=== PATIENT | female | born 1945 | race Caucasian/White ===

== ENCOUNTER → 2016-09-30 | Outpatient (CLI) | payer OTHER ==
[~2016-09-30] MED LIST: ADVIN25050 INH; ALBU1AER9 INH; BNC20 PO
--- NOTE | 2016-09-30 15:42 | MAMMOGRAPHY REPORT ---
BILATERAL DIGITAL SCREENING MAMMOGRAM WITH CAD: 09/30/2016 CLINICAL HISTORY: Routine screening. TECHNIQUE: Bilateral CC and MLO views were obtained. Current study was also evaluated with a Computer Aided Detection (CAD) system. COMPARISON: Comparison is made to exam dated: 08/25/2008. BREAST COMPOSITION: The tissue of both breasts is almost entirely fatty. FINDINGS: A stable subcentimeter reniform mass in the right upper outer quadrant most likely represen ts an intramammary lymph node. No new suspicious mass, architectural distortion or cluster of microc alcifications is seen. IMPRESSION: ACR BI-RADS CATEGORY 1: NEGATIVE There is no mammographic evidence of malignancy. A 1 year screening mammogram is recommended. The pa tient will receive written notification of the results. Approximately 10% of breast cancers are not detected with mammography. A negative mammographic report should not delay biopsy if a clinically suggestive mass is present. Lexii Burrell M.D. ay/:09/30/2016 14:00:20 Teacher'S Aide: Amy Coughlin RT(R)(M), [facility] letter sent: Normal 1/2 BI-RADS Code: ACR BI-RADS Category 1: Negative
== END | disposition home or self-care (01) ==
LOC: C.MAMM 13:27
PROVIDERS: ATTEND Family Medicine
DX: Z12.31 Encounter for screening mammogram for malignant neoplasm of breast (principal)

== ENCOUNTER → 2017-02-25 | Outpatient (CLI) | payer OTHER | END | disposition home or self-care (01) | LOC: C.MAMM 08:56 | PROVIDERS: ATTEND Family Medicine | DX: M85.88 Other specified disorders of bone density and structure, other site (principal); M85.851 Other specified disorders of bone density and structure, right thigh; M85.852 Other specified disorders of bone density and structure, left thigh; M81.0 Age-related osteoporosis without current pathological fracture ==

== ENCOUNTER → 2017-04-16 | Outpatient (CLI) | payer OTHER ==
--- NOTE | 2017-04-16 16:37 | DIAGNOSTIC IMAGING REPORT ---
CHEST 2 VIEWS ROUTINE CLINICAL HISTORY: 72 years-old Female presenting with R05. TECHNIQUE: PA and lateral views of the chest were obtained. COMPARISON: 02/20/2015. FINDINGS: Median sternotomy wires with breakage of the inferior most wire, unchanged. Atherosclerosis of aortic arch. Cardiac silhouette top normal in size, unchanged. Pulmonary vascular prominence. Bandlike opacities at the lung bases as on prior exam. No new focal opacity. No pleural effusion or pneumothorax. Degenerative changes of the thoracic spine. Upper abdomen normal. IMPRESSION: 1. Findings could suggest mild volume overload. No other acute cardiopulmonary disease. 2. Chronic bibasilar scarring. Electronically signed by: [place] Arita M.D. 04/16/2017 4:36 PM Dictated Date/Time: 04/16/2017 4:34 PM
== END | disposition home or self-care (01) ==
LOC: C.RAD1850 16:19
PROVIDERS: ATTEND Family Medicine
DX: R05 Cough (principal); R50.9 Fever, unspecified

== ENCOUNTER → 2017-10-15 | Outpatient (CLI) | payer OTHER ==
[~2017-10-15] MED LIST changes: +OPTIRAY 320 IV PRN
--- NOTE | 2017-10-15 10:17 | DIAGNOSTIC IMAGING REPORT ---
CT SCAN OF THE CHEST WITH IV CONTRAST CLINICAL HISTORY: Asthma. Dyspnea. COMPARISON STUDY: Chest CT dated 02/11/2017. Chest x-ray dated 04/16/2017. TECHNIQUE: Following the IV administration of 92 cc of Optiray 320, CT scan of the thorax was performed from the thoracic inlet to the upper abdomen. Images are reviewed in the axial, sagittal, and coronal planes. IV contrast was administered without complication. A dose lowering technique was utilized adhering to the principles of ALARA. CT DOSE: 342.37 mGy.cm FINDINGS: Thyroid: Imaged portions of the thyroid gland are normal in size and attenuation. Thoracic aorta: There is mild atherosclerotic calcification of the thoracic aorta, which is normal in caliber and demonstrates bovine variant arch anatomy. No dissection is seen. Pulmonary vasculature: The main pulmonary arteries are dilated suggesting pulmonary artery hypertension. There are no filling defects identified in the central pulmonary vessels to indicate pulmonary embolus. Note that this examination was not protocoled for evaluation of the pulmonary arteries. Heart: The patient is status post midline sternotomy. There is mild enlargement the right cardiac chambers. No pericardial effusion is seen. The coronary arteries are densely calcified.. Lungs and pleural spaces: Evaluation of the lung parenchyma is modestly degraded by motion artifact. No airspace consolidation or pleural effusion is identified. There is chronic elevation of the left hemidiaphragm. Foci of bibasilar scarring/atelectasis are observed. There is a 7 mm right lower lobe pulmonary nodule seen on image #182. The trachea and central airways are clear. Mediastinum: There is no mediastinal lymphadenopathy. Kay: Clear. Axillae: There is no axillary lymphadenopathy. Upper abdomen: There is evidence of hepatic steatosis. A subcentimeter hypodensity in the left hepatic lobe is seen on image #259. This likely represents a cyst but is too small for definitive characterization. Skeletal structures: The skeletal structures are osteopenic. Degenerative change is noted in the thoracic spine. No lytic or blastic bony lesions are seen. IMPRESSION: 1. There is no airspace consolidation or pleural effusion. 2. There is a 7 mm right lower lobe pulmonary nodule. This is pathologically indeterminant, but new from 02/11/2007. This should be followed as per the Fleischner criteria. 3. Hepatic steatosis. 4. Additional findings as above. Please refer to below summary of Fleischner criteria recommendations for follow-up of incidental CT nodules (H MacMahon, Guidelines for management of small pulmonary nodules detected on CT scans: A statement from the Fleischner Society, Radiology 237: [phone].) SOLID NODULES Solitary nodule size: <6 mm * low risk patients: no follow-up needed * high risk patients: optional CT at 12 months Solitary nodule size: 6-8 mm * low risk patients: follow-up at 6-12 months, then consider further follow-up at 18-24 months * high risk patients: initial follow-up CT at 6-12 months and then at 18-24 months if no change Solitary nodule size: >8 mm * either low or high risk patients - consider follow-up CT at 3 months, and/or CT-PET, and/or biopsy Multiple nodules size: <6 mm * low risk patients: no routine follow-up * high risk patients: optional CT at 12 months Multiple nodules size: 6-8 mm * low risk patients: follow-up at 3-6 months, then consider further follow-up at 18-24 months * high risk patients: follow-up at 3-6 months, then at 18-24 months if no change Multiple nodules size: >8 mm * low risk patients: follow-up at 3-6 months, then consider further follow-up at 18-24 months * high risk patients: follow-up at 3-6 months, then at 18-24 months if no change Note: newly detected indeterminate nodule in persons 35 years of age or older. * low risk patients: minimal or absent history of smoking and/or other known risk factors * high risk patients: history of smoking or of other known risk factors (e.g. first degree relative with lung cancer, or exposure to asbestos, radon, uranium) * if a nodule up to 8 mm is partly solid or is ground glass further follow-up is required after 24 months to exclude possible slow growing adenocarcinoma (VENUS) SUBSOLID NODULES Solitary pure ground-glass nodule * nodule size <6 mm - no CT follow-up required * nodule size >=6 mm - follow-up CT at 6-12 months, then every 2 years until 5 years Solitary part-solid nodule * nodule size <6 mm - no CT follow-up required * nodule size >=6 mm - follow-up CT at 3-6 months. If unchanged, and solid component remains <6 mm, then annual follow-up for 5 years Multiple subsolid nodules * nodule size <6 mm - follow-up CT at 3-6 months, consider further follow-up at 2 and 4 years if stable * nodule size >=6 mm - follow-up CT at 3-6 months, subsequent management based on the most suspicious nodule(s) Electronically signed by: Pa Brothers M.D. 10/15/2017 10:16 AM Dictated Date/Time: 10/15/2017 10:08 AM
== END | disposition home or self-care (01) ==
LOC: C.CTS 09:28
PROVIDERS: ATTEND Internal Medicine Pulmonary Disease
DX: R91.1 Solitary pulmonary nodule (principal); K76.0 Fatty (change of) liver, not elsewhere classified; J45.909 Unspecified asthma, uncomplicated

== ENCOUNTER 2019-09-03 09:13 | Observation (INO) ==
[2019-09-03] MEDS ORDERED: ASPIRIN CHEW 324 MG PO STA (09:59)
[2019-09-03 11:25] LABS: Basophils # (auto) 0.05 K/uL (0-0.2); Basophils % (auto) 0.7 %; Eosinophils # (auto) 0.34 K/uL (0-0.5); Eosinophils % (auto) 4.7 %; Hematocrit (blood only) 43.2 % (37-47); Hemoglobin 14.8 g/dL (12.0-16.0); Immature Granulocytes # (auto) 0.01 K/uL (0.00-0.02); Immature Granulocytes % (auto) 0.1 %; Lymphocytes # (auto) 2.58 K/uL (1.2-3.4); Lymphocytes % (auto) 35.5 %; Mean Corpuscular Hemoglobin 33.8 pg (25-34); Mean Corpuscular Hgb Conc 34.3 g/dL (32-36); Mean Corpuscular Volume 98.6 fL (80-100); Mean Platelet Volume 9.1 fL (7.4-10.4); Monocytes # (auto) 0.69 K/uL (0.11-0.59); Monocytes % (auto) 9.5 %; Neutrophils # (auto) 3.59 K/uL (1.4-6.5); Neutrophils % (auto) 49.5 %; Platelet Count 236 K/uL (130-400); RDW Coefficient of Variation 13.1 % (11.5-14.5); RDW Standard Deviation 47.1 fL (36.4-46.3); Red Blood Count 4.38 M/uL (4.2-5.4); White Blood Count 7.26 K/uL (4.8-10.8)
[2019-09-03 11:41] LABS: Alanine Aminotransferase 51 U/L (12-78); Albumin Level 3.6 gm/dl (3.4-5.0); Aspartate Aminotransferase 33 U/L (15-37); BUN Creatinine Ratio 14.9 (10-20); Bilirubin Direct 0.1 mg/dl (0-0.2); Blood Urea Nitrogen 13 mg/dl (7-18); Calcium 8.9 mg/dl (8.5-10.1); Carbon Dioxide 26 mmol/L (21-32); Chloride 110 mmol/L (98-107); Creatinine Clr Calc Pharmacy 55.3 ml/min; Est GFR (Non-African American) 63.9; Glucose 77 mg/dl (70-99); Lipase 221 U/L (73-393); Potassium 4.4 mmol/L (3.5-5.1); Sodium 140 mmol/L (136-145)
[2019-09-03 11:44] LABS: Partial Thromboplastin Ratio 0.9; Partial Thromboplastin Time 26.3 Seconds (21.0-31.0); Prothrombin Time 10.5 Seconds (9.0-12.0)
[2019-09-03 11:46] LABS: Alkaline Phosphatase 121 U/L (45-117); Bilirubin,Total 0.5 mg/dl (0.2-1); Total Protein 7.1 gm/dl (6.4-8.2); Troponin I < 0.015 ng/ml (0-0.045)
[2019-09-03] MEDS ORDERED: GI COCKTAIL ED USE PO ONE (12:00)
--- NOTE | 2019-09-03 12:03 | XRay Report ---
XR abdomen 2V w PA chest CLINICAL HISTORY: epigatric pain pain. Nausea. COMPARISON STUDY: 08/23/2018 FINDINGS: The soft tissues, psoas shadows, renal outlines and intestinal gas pattern appear normal. T here is no evidence for bowel obstruction. There is no evidence for free intraperitoneal air. No abno rmal abdominal calcifications are seen. A frontal view of the chest was performed and is unremarkable . Minimal bibasilar platelike atelectasis. IMPRESSION: 1. Nonobstructive bowel pattern. 2. Platelike atelectasis both lung bases with chest otherwise negative. ACT 112: Negative or not required by law. The above report was generated using voice recognition software. It may contain grammatical, syntax or spelling errors. Electronically signed by: Shiraz Shah M.D. 09/03/2019 12:01 PM
--- NOTE | 2019-09-03 12:43 | Emergency Department Note ---
History of Present Illness General Chief Complaint: Chest Pain Stated Complaint: CHEST PAIN, SOB Time Seen by Provider: 09/03/19 09:43 History of Present Illness Provider Complaint: chest pain Onset (ago): hour(s) greater than 10 (13) Time: 20:30 (Last night) Duration: intermittent Pain Location: substernal Pain Radiation: none Severity: mild Quality: + other ("Punching") Relieved By: + other (Burping) Exacerbated By: + nothing Context: no recent surgery, no recent immobilization, no recent travel, no trauma/injury and no history of DVT/PE Associated symptoms: + nausea and + dyspnea; no palpitations, no fever, no cough and no leg swelling No loss of taste or smell Home Medications Home Medications Medication Instructions Recorded Confirmed Type allopurinol 200 mg PO QAM 08/23/18 09/03/19 History amlodipine 2.5 mg PO QAM 08/23/18 09/03/19 History aspirin 81 mg PO QAM 08/23/18 09/03/19 History atorvastatin 10 mg PO QAM 08/23/18 09/03/19 History montelukast 10 mg PO QAM 08/23/18 09/03/19 History aspirin 1,000 mg PO UD 09/03/19 09/03/19 History cholecalciferol (vitamin D3) 0 mcg PO QAM 09/03/19 09/03/19 History [Vitamin D3] cyanocobalamin (vitamin B-12) 1,000 mcg PO DAILY PRN 09/03/19 09/03/19 History [Vitamin B-12] lactobacillus combination no.4 0 mmu cells PO QAM 09/03/19 09/03/19 History [Probiotic] Allergies Allergy/AdvReac Type Severity Reaction Status Date / Time Arlee And Derivatives Allergy Severe TONGUE Verified 09/03/19 09:55 SWELLING codeine AdvReac Intermediate DIARRHEA, Verified 09/03/19 09:55 MIGRAINES,HALLUCINATIONS ZAIDA Inhibitors AdvReac Mild DIZZY Verified 09/03/19 09:55 valsartan AdvReac Mild DIZZY Verified 09/03/19 09:55 Opioid Analgesics Allergy Unknown ` Uncoded 09/03/19 09:55 HMG-CoA-R Inhibitors AdvReac Mild STATINS-JACQUELIN Uncoded 09/03/19 09:55 LGIA Past Med/Surg History Family History Other Family history non-contributory Social History Preferred Language: Yemeni Feels Safe at Home: Yes Smoking Status: Never smoker Review of Systems A total of 10 systems reviewed and were otherwise negative Physical Exam Vital Signs Vital Signs - 24 hr 09/03/19 09:27 09/03/19 10:46 09/03/19 10:48 Temperature 37 C Temperature Source Oral Pulse Rate 83 Pulse Rate [Right Finger] 78 Pulse Rhythm Regular Pulse Rhythm [Right Finger] Pulse Strength Normal Pulse Strength [Right Finger] Respiratory Rate 16 18 Respiratory Effort / Characteristics Non-Labored Spontaneous Non-Labored Respiratory Depth Normal Normal Respiratory Pattern Regular Blood Pressure 143/89 H Blood Pressure [Right Arm] 150/73 H Blood Pressure Mean 107 Blood Pressure Mean [Right Arm] 98 Blood Pressure Position Lying Blood Pressure Position [Right Arm] Pulse Oximetry 96 95 Oxygen Delivery Method Room Air Room Air Room Air Sepsis Recent Fever Within 48 Hours No Sepsis New/Unexplained Change in Mental Status No Sepsis Action Taken by Nursing No Action Required 09/03/19 12:22 Temperature Temperature Source Pulse Rate Pulse Rate [Right Finger] 82 Pulse Rhythm Pulse Rhythm [Right Finger] Regular Pulse Strength Pulse Strength [Right Finger] Normal Respiratory Rate 20 Respiratory Effort / Characteristics Non-Labored Spontaneous Respiratory Depth Normal Respiratory Pattern Regular Blood Pressure Blood Pressure [Right Arm] 166/83 H Blood Pressure Mean Blood Pressure Mean [Right Arm] 110 Blood Pressure Position Blood Pressure Position [Right Arm] Sitting Pulse Oximetry 95 Oxygen Delivery Method Room Air Sepsis Recent Fever Within 48 Hours Sepsis New/Unexplained Change in Mental Status Sepsis Action Taken by Nursing Physical Exam GENERAL: She is oriented to person, place, and time. She appears well-developed and well-nourished. She does not appear distressed. HENT: Exam performed. -Head: Normocephalic and atraumatic. -Right Ear: External ear normal. No mastoid tenderness. -Left Ear: External ear normal. No mastoid tenderness. -Mouth/Throat: The oropharynx is clear and moist. No trismus in the jaw. No dental abscesses or uvula swelling. No oropharyngeal exudate or tonsillar abscesses. EYES: Conjunctivae and EOM are normal. Pupils are equal, round, and reactive to light. Right eye exhibits no discharge. Left eye exhibits no discharge. No scleral icterus. NECK: Normal range of motion. Neck supple. No JVD present. No spinous process tenderness present. No carotid bruit present. No rigidity. No tracheal deviation and normal range of motion present. No Brudzinski's sign and no Kernig's sign noted. CV: Normal rate, regular rhythm, normal heart sounds and intact distal pulses. There is no peripheral edema. Palpable radial pulses bue. PULM/CHEST: Effort normal and breath sounds normal. No respiratory distress. No stridor. She has no wheezes. She has no rales. -Chest Wall: She exhibits no tenderness. ABD: The abdomen is soft. Bowel sounds are normal. She has no distension. No mass is present. There is no tenderness. There is no rebound, no guarding, no Smith's sign and no tenderness at McBurney's point. Rovsig negative MUSC/SKEL: Normal range of motion. There is no peripheral edema, tenderness or deformity. LYMPH: No cervical adenopathy. NEURO: She is alert and oriented to person, place, and time. She has normal strength. No cranial nerve deficit or sensory deficit. Coordination and gait normal. GCS eye subscore is 4. GCS verbal subscore is 5. GCS motor subscore is 6. Cerebellar tests wnl. SKIN: Skin is warm and dry. She is not diaphoretic. PSYCH: She has a normal mood and affect. Behavior is normal. Judgment and thought content normal. Course Course 0945: The patient was evaluated in room C7. A complete history and physical exam was performed. Cardiac monitoring: An order was placed for continuous cardiac monitoring. The monitor shows a rate of 84 with sinus rhythm 1250: Vital signs stable. Labs and imaging within normal limits. Patient reports minimal improvement with GI cocktail. I did explain to the patient that her labs and imaging are within normal limits and offered her the option of inpatient observation for rule out ACS versus outpatient follow-up. Patient states she talked with her daughter and wants to be admitted for inpatient observation for rule out ACS. [facility] hospitalist team will be consulted and they will come and evaluate the patient. Administered Medications Discontinued Medications Al Hydrox/Mg Hydrox/Simethicone () 1 dose PO ONE ONE Stop: 09/03/19 12:01 Last Admin: 09/03/19 12:20 Dose: 1 dose Documented by: [id number] Aspirin (Aspirin) 324 mg PO NOW STA Stop: 09/03/19 10:00 Last Admin: 09/03/19 11:52 Dose: Not Given Documented by: [id number] Medical Decision Making Laboratory Data Result diagrams: 09/03/19 11:02 09/03/19 11:02 Labs: Lab Results 09/03/19 09/03/19 09/03/19 Range/Units 11:02 11:02 11:02 WBC 7.26 (4.8-10.8) K/uL RBC 4.38 (4.2-5.4) M/uL Hgb 14.8 (12.0-16.0) g/dL Hct 43.2 (37-47) % MCV 98.6 (80-100) fL MCH 33.8 (25-34) pg MCHC 34.3 (32-36) g/dL RDW Std Deviation 47.1 H (36.4-46.3) fL RDW Coeff of Ciara 13.1 (11.5-14.5) % Plt Count 236 (130-400) K/uL MPV 9.1 (7.4-10.4) fL Immature Gran % (Auto) 0.1 % Neut % (Auto) 49.5 % Lymph % (Auto) 35.5 % [place] % (Auto) 9.5 % Eos % (Auto) 4.7 % Baso % (Auto) 0.7 % Neut # (Auto) 3.59 (1.4-6.5) K/uL Lymph # (Auto) 2.58 (1.2-3.4) K/uL [place] # (Auto) 0.69 H (0.11-0.59) K/uL Eos # (Auto) 0.34 (0-0.5) K/uL Baso # (Auto) 0.05 (0-0.2) K/uL Immature Gran # (Auto) 0.01 (0.00-0.02) K/uL PT 10.5 (9.0-12.0) Seconds INR 1.0 (0.9-1.1) APTT 26.3 (21.0-31.0) Seconds PTT Ratio 0.9 Sodium 140 (136-145) mmol/L Potassium 4.4 (3.5-5.1) mmol/L Chloride 110 H (98-107) mmol/L Carbon Dioxide 26 (21-32) mmol/L Anion Gap 5.0 (3-11) BUN 13 (7-18) mg/dl Creatinine 0.90 (0.6-1.2) mg/dl Est Cr Clr Drug Dosing 55.3 ml/min Est GFR ( Amer) 74.0 Est GFR (Non-Af Amer) 63.9 BUN/Creatinine Ratio 14.9 (10-20) Glucose 77 (70-99) mg/dl Calcium 8.9 (8.5-10.1) mg/dl Total Bilirubin 0.5 (0.2-1) mg/dl Direct Bilirubin 0.1 (0-0.2) mg/dl AST 33 (15-37) U/L ALT 51 (12-78) U/L Alkaline Phosphatase 121 H (45-117) U/L Troponin I < 0.015 (0-0.045) ng/ml Total Protein 7.1 (6.4-8.2) gm/dl Albumin 3.6 (3.4-5.0) gm/dl Lipase 221 (73-393) U/L Imaging Data Abdominal x-ray: Radiologist's impression: XR abdomen 2V w PA chest CLINICAL HISTORY: epigatric pain pain. Nausea. COMPARISON STUDY: 08/23/2018 FINDINGS: The soft tissues, psoas shadows, renal outlines and intestinal gas pattern appear normal. There is no evidence for bowel obstruction. There is no evidence for free intraperitoneal air. No abnormal abdominal calcifications are seen. A frontal view of the chest was performed and is unremarkable. Minimal bibasilar platelike atelectasis. IMPRESSION: 1. Nonobstructive bowel pattern. 2. Platelike atelectasis both lung bases with chest otherwise negative. ACT 112: Negative or not required by law. The above report was generated using voice recognition software. It may contain grammatical, syntax or spelling errors. Electronically signed by: Shiraz Shah M.D. 09/03/2019 12:01 PM Dictated: 09/03/19 1200 Transcribed: 09/03/19 1200 ECG Data Indication: chest pain Rate (beats per minute): 84 Rhythm: normal sinus Findings: no ST depression, no T-wave inversion and no ST elevation [facility] Narrative 0945: The patient was evaluated in room C7. A complete history and physical exam was performed. Cardiac monitoring: An order was placed for continuous cardiac monitoring. The monitor shows a rate of 84 with sinus rhythm 1250: Vital signs stable. Labs and imaging within normal limits. Patient reports minimal improvement with GI cocktail. I did explain to the patient that her labs and imaging are within normal limits and offered her the option of inpatient observation for rule out ACS versus outpatient follow-up. Patient states she talked with her daughter and wants to be admitted for inpatient observation for rule out ACS. [facility] hospitalist team will be consulted and they will come and evaluate the patient. Impression & Plan Chest pain Discharge Plan Visit Data Chief Complaint: Chest Pain Stated Complaint: CHEST PAIN, SOB ED Provider: Flo Gonzalez Discharge Problem: Chest pain Patient Disposition: Being Evaluated by Hospitalist Forms Stand Alone Forms: My [facility] Prescriptions Prescriptions: No Action atorvastatin 10 mg tablet 10 mg PO QAM RF: 0 amlodipine 2.5 mg tablet 2.5 mg PO QAM RF: 0 allopurinol 100 mg tablet 200 mg PO QAM RF: 0 aspirin 81 mg Tablet,Delayed Release (Dr/Ec) 81 mg PO QAM RF: 0 montelukast 10 mg tablet 10 mg PO QAM RF: 0 cyanocobalamin (vitamin B-12) [Vitamin B-12] 1,000 mcg Tablet 1,000 mcg PO DAILY PRN (Reason: .) RF: 0 cholecalciferol (vitamin D3) [Vitamin D3] 25 mcg (1,000 unit) Tablet 0 mcg PO QAM RF: 0 Probiotic 3 billion cell Capsule 0 mmu cells PO QAM RF: 0 aspirin 500 mg Tablet 1,000 mg PO UD RF: 0 Referrals Referrals: Perry Tirado MD [Primary Care Provider] - Discharge Problem: Chest pain Qualifiers: Chest pain type: unspecified Qualified Code(s): R07.9 - Chest pain, unspecified
--- NOTE | 2019-09-03 13:01 | History & Physical Report ---
Date of Service September 03, 2019 Assessment & Plan (1) Cough: Initially not described as part of her symptom complex her cough was significant when I did evaluate the patient. Given her history of reactive airway disease and the significance of her cough associate with diarrhea and worsening subjective feelings of shortness of breath a COVID test will be ordered. As we await her COVID test d-dimer came back in the [address] angiogram will be undertaken rule out pulmonary embolism Because of the lack of chest x-ray findings doxycycline will be started Is a history of asthma and some auditory wheezing heard in the emergency department she is given 1 dose of oral prednisone and will be given DuoNeb therapy continuing her Singulair therapy (2) Chest pain: Patient had chest pain and shortness of breath prior to coming in also with some mild nausea and some loose bowel movements. There is no significant help with a GI cocktail. Patient and her daughter were uncomfortable going home emergency department recommended observation. Patient will be maintained on home aspirin therapy 81 mg a day Because of association with GI symptom complex will be given Carafate and also Protonix. (3) Hypertension: Patient traditionally takes low-dose amlodipine 2.5 a day she previously has had intolerance to ZAIDA inhibitor as an ARB medications (4) HLD (hyperlipidemia): Patient is on atorvastatin low-dose 10 mg (5) DVT prophylaxis: Lovenox to be for DVT prevention History of Present Illness Primary Care Provider: Perry Tirado MD 74-year-old female who presents to the ER with 4 to 5-day history of increasing malaise increasing shortness of breath intermittent crampy left-sided chest pain and now a coarse nonproductive cough. Patient is a 1 day history of nausea and loose bowel movements. Has had no fever or recent travel. 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 Been getting local foods takeout etc. In the emergency department her work-up included a negative chest x-ray for infiltrate with exception of basilar atelectasis, and EKG with sinus rhythm and a troponin that is been unremarkable. Patient's had no response to GI cocktail. She is a baseline history of asthma and takes Singulair. Her cough is fairly significant here in the emergency department. Laboratories are unremarkable for leukocytosis lymphopenia no significant LFT changes and only mild elevation of alkaline phosphatase She will be a COVID rule out Allergies Allergy/AdvReac Type Severity Reaction Status Date / Time [place] And Derivatives Allergy Severe TONGUE Verified 09/03/19 09:55 SWELLING codeine AdvReac Intermediate DIARRHEA, Verified 09/03/19 09:55 MIGRAINES,HALLUCINATIONS ZAIDA Inhibitors AdvReac Mild DIZZY Verified 09/03/19 09:55 valsartan AdvReac Mild DIZZY Verified 09/03/19 09:55 Opioid Analgesics Allergy Unknown ` Uncoded 09/03/19 09:55 HMG-CoA-R Inhibitors AdvReac Mild STATINS-JACQUELIN Uncoded 09/03/19 09:55 LGIA Home Medications Home Medications Medication Instructions Recorded Confirmed Type allopurinol 200 mg PO QAM 08/23/18 09/03/19 History amlodipine 2.5 mg PO QAM 08/23/18 09/03/19 History aspirin 81 mg PO QAM 08/23/18 09/03/19 History atorvastatin 10 mg PO QAM 08/23/18 09/03/19 History montelukast 10 mg PO QAM 08/23/18 09/03/19 History aspirin 1,000 mg PO UD 09/03/19 09/03/19 History cholecalciferol (vitamin D3) 0 mcg PO QAM 09/03/19 09/03/19 History [Vitamin D3] cyanocobalamin (vitamin B-12) 1,000 mcg PO DAILY PRN 09/03/19 09/03/19 History [Vitamin B-12] lactobacillus combination no.4 0 mmu cells PO QAM 09/03/19 09/03/19 History [Probiotic] Past Med/Surg History Family History Other Family history non-contributory Social History Preferred Language: Frisian Beliefs That Will Affect Care: None Current Living Situation: Spouse Feels Safe at Home: Yes Safety Concerns: Feels Safe At This Time Smoking Status: Never smoker Hx Alcohol Use: No Hx Substance Use: No Review of Systems Review of Systems: Mild distress and fatigue no headache, blurry or double vision no speech or swallowing issues Left-sided chest pain, intermittent and described as pressure no complete sensation of palpitations Worsening shortness of breath over the last few days with nonproductive cough expiratory wheezes here in the ER visit no abdominal pain, mild nausea without vomiting, a.m. of admission did have some diarrhea while she typically has constipation no dysuria, hematuria or frequency no focal joint pain or swelling no back pain, CVA tenderness or radicular pain no bruising, bleeding or rashes no focal signs of weakness or numbness or altered sensation no complaints or anxiety or depression.. Physical Exam Physical Exam: The patient appeared well nourished and normally developed. Vital signs as documented. Head exam is normocephalic atraumatic no scleral icterus Neck is without JVD, thyromegaly, or carotid bruits. Lungs are coarse breath sounds in all lung holman no egophony of no focal loss Cardiac exam, Rhythm is regular.. No murmurs, rubs or gallops. Xiphoid process is tender Abdominal exam reveals normal bowel sounds, soft nontenderness over the xiphoid process Extremities are nonedematous and both pedal pulses are normal. Neurologic exam is alert and oriented, no focal loss of strength or sensation Skin is without bruises or rashes Psychologically is without concerns for anxiety or depression Results & Data Results & Data ([facility]) Vital Signs (Past 12 Hours) Vital Signs Temp Pulse Pulse Resp BP BP Pulse Ox 09/03/19 12:22 82 20 166/83 H 95 09/03/19 10:48 78 18 150/73 H 95 09/03/19 09:27 98.6 F 83 16 143/89 H 96 Chest x-ray is unremarkable except for basilar atelectasis EKG shows normal sinus rhythm Initial troponin unremarkable as well as laboratories PG Care Time/CCT Total # of Minutes Spent Total Time Spent with Patient: Total time spent is greater than 50% in coordination of care (as documented) at patient's floor/unit and/or counseling patient: Coding Level of Care Code 85818 Initial Inpt Care Lvl 3 Diagnoses Cough R05 Chest pain R07.9 Hypertension I10 HLD (hyperlipidemia) E78.5 DVT prophylaxis Z29.9
[2019-09-03] MEDS ORDERED: CYANOCOBALAMIN 500 MCG TABLET (VITAMIN B-12) PO PRN (15:28)
[2019-09-03] MEDS ORDERED: MoRPHine SULFATE 2 MG/ML CARP IV PRN (15:28)
[2019-09-03] MEDS ORDERED: predniSONE 20 MG TAB PO STA (15:28)
[2019-09-03] MEDS ORDERED: NITROGLYCERIN SL 0.4 MG/TAB TAB SL PRN (15:28)
[2019-09-03] MEDS ORDERED: ONDANSETRON INJ 2 MG/ML 2 ML VIAL IV PRN (15:28)
[2019-09-03] MEDS ORDERED: ALUMINUM/MAGNESIUM SUSP 30 ML UDC PO PRN (15:28)
[2019-09-03] MEDS ORDERED: ACETAMINOPHEN 325 MG TAB PO PRN (15:28)
[2019-09-03] MEDS: ALBUT/IPRATROP 3MG/0.5MG NEB 3 ML VIAL NEB SCH ×2 (15:59→19:55)
[2019-09-03] MEDS ORDERED: ENOXAPARIN INJ 40 MG/0.4 ML SYR SQ SCH (16:00)
--- NOTE | 2019-09-03 16:18 | Electrocardiogram Report ---
Test Reason : Blood Pressure : / mmHG Vent. Rate : 084 BPM Atrial Rate : 084 BPM P-R Int : 140 ms QRS Dur : 088 ms QT Int : 384 ms P-R-T Axes : 029 078 082 degrees QTc Int : 453 ms Normal sinus rhythm Normal ECG When compared with ECG of 23-AUG-2018 10:59, No significant change was found Confirmed by Joey Cotton ([id number]) on 09/03/2019 4:18:05 PM Referred By: Perry Tirado Confirmed By:Joey Cotton
[2019-09-03 16:54] LABS: D Dimer 730 ug/L FEU (0-500)
[2019-09-03] MEDS ORDERED: OPTIRAY 320 125ml IV PRN (17:54)
--- NOTE | 2019-09-03 18:17 | CT Scan Report ---
CT ANGIOGRAM OF THE CHEST CLINICAL HISTORY: Dyspnea. COMPARISON STUDY: Chest CT dated 10/15/2017 and 02/11/2007. Chest x-ray dated 09/03/2019. TECHNIQUE: Following the IV administration of 119 cc of Optiray 320, CT angiogram of the chest was pe rformed from the upper abdomen to the thoracic inlet utilizing the pulmonary embolus protocol. Images are reviewed in the axial, sagittal, and coronal planes. 3-D MIPS images are created and assessed. I V contrast was administered without complication. A dose lowering technique was utilized adhering to the principles of ALARA. CT DOSE: 480.81 mGycm FINDINGS: Thyroid: Imaged portions of the thyroid gland are normal in size and attenuation. Thoracic aorta: Atherosclerotic calcification is noted in the thoracic aorta. There is mild ectasia o f the ascending thoracic aorta which measures up to 3.6 cm in diameter. The remainder of the thoracic aorta is normal in caliber, and the arch demonstrates bovine variant anatomy. No dissection is seen. Pulmonary vasculature: The main pulmonary arteries are dilated suggesting pulmonary artery hypertensi on. There are no filling defects identified in main, lobar, or segmental pulmonary branches to sugges t pulmonary embolus. Heart: The patient is status post midline sternotomy. The heart is mildly enlarged and without perica rdial effusion. The coronary arteries are densely calcified. Lungs and pleural spaces: There is bibasilar scarring/atelectasis. No airspace consolidation is seen typical for pneumonia and no pleural effusion is identified. The trachea and central airways are adrian r. There is a 9 mm ovoid pulmonary nodule in the right lower lobe seen on image #97. This is only min imally increased in size dating back to 2017 but is new from 2006. No additional pulmonary lesion is identified. Mediastinum: There is no mediastinal lymphadenopathy. Kay: Clear. Axillae: There is no axillary lymphadenopathy. Upper abdomen: There is a tiny hiatal hernia. A subcentimeter cyst is noted in the left hepatic lobe. Skeletal structures: The skeletal structures are osteopenic. Degenerative change is noted in the shou lders and thoracic spine. No lytic or blastic bony lesions are seen. IMPRESSION: 1. There is no evidence of pulmonary embolus in the main, lobar, or segmental pulmonary arteries. 2. There is no airspace consolidation or pleural effusion. 3. Cardiomegaly with evidence of pulmonary artery hypertension. 4. There is a 9 mm right lower lobe pulmonary nodule which has modestly increased in size from 2018 b ut is new from 2007. This raises concern for a slow-growing lesion such as carcinoid. Nonemergent pul monology follow-up is recommended. 5. Additional findings as above. ACT 112: Negative or not required by law. Electronically signed by: Pa Brothers M.D. 09/03/2019 6:16 PM
[2019-09-03 21:11] LABS: Influenza A virus by PCR Neg for Influ A (Neg); Influenza B virus by PCR Neg for Influ B (Neg)
[2019-09-03] MEDS: PANTOprazole 40 MG in SYRINGE 0 ML IV SCH (21:12)
[2019-09-03] MEDS: SUCRALFATE 1 GM/10 ML UDC PO SCH (21:12)
[2019-09-03] MEDS: DOXYCYCLINE HYCLATE 100 MG CAP PO SCH (21:12)
[2019-09-04] MEDS: ALBUT/IPRATROP 3MG/0.5MG NEB 3 ML VIAL NEB SCH ×2 (07:34→11:15)
[2019-09-04] MEDS ORDERED: AMLODIPINE BESYLATE 5 MG TAB PO SCH (08:00)
[2019-09-04] MEDS ORDERED: ASPIRIN 81 MG ECTAB PO SCH (08:00)
[2019-09-04] MEDS ORDERED: allopurinoL 100 MG TAB PO SCH (08:00)
[2019-09-04] MEDS ORDERED: SACCHAROMYCES BOULARDII 250 MG CAP PO SCH (08:00)
[2019-09-04] MEDS ORDERED: ATORVASTATIN 10 MG TAB PO SCH (08:00)
[2019-09-04] MEDS: DOXYCYCLINE HYCLATE 100 MG CAP PO SCH (08:15)
[2019-09-04] MEDS: PANTOprazole 40 MG in SYRINGE 0 ML IV SCH (08:15)
[2019-09-04] MEDS: SUCRALFATE 1 GM/10 ML UDC PO SCH ×2 (08:16→11:49)
[2019-09-04 09:23] LABS: BUN Creatinine Ratio 15.5 (10-20); Blood Urea Nitrogen 16 mg/dl (7-18); Calcium 9.2 mg/dl (8.5-10.1); Carbon Dioxide 24 mmol/L (21-32); Chloride 106 mmol/L (98-107); Creatinine Clr Calc Pharmacy 47.9 ml/min; Est GFR (African American) 64.4; Est GFR (Non-African American) 55.6; Glucose 156 mg/dl (70-99); Potassium 3.7 mmol/L (3.5-5.1); Sodium 138 mmol/L (136-145); Troponin I < 0.015 ng/ml (0-0.045)
[2019-09-04] MEDS ORDERED: predniSONE 20 MG TAB PO ONE (11:00)
--- NOTE | 2019-09-04 12:57 | Discharge Summary ---
Date of Service date of admission - September 03, 2019 date of discharge - September 04, 2019 Admission HPI Per Admitting Provider 74-year-old female who presents to the ER with 4 to 5-day history of increasing malaise, increasing shortness of breath, intermittent crampy, left-sided chest pain with coughing, and now a coarse nonproductive cough. Patient also with a 1-day history of nausea and loose bowel movements. Has had no fever or recent travel. 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 Been getting local foods takeout etc. In the emergency department her work-up included a negative chest x-ray for infiltrate with exception of basilar atelectasis, and EKG with sinus rhythm and a troponin that is unremarkable. Patient had no response to GI cocktail for her chest discomfort. She has baseline history of asthma and takes Singulair and albuterol prn. Her cough was fairly significant in the emergency department. Principal Diagnosis asthma exacerbation Discharge Exam Constitutional well developed and well nourished; no acute distress and no altered mental status cough - bronchial sounding ENMT external ear and nose normal, oropharynx normal Respiratory no respiratory distress Auscultation: + wheezes; no crackles Cardiovascular Rate/Rhythm: regular rate and regular rhythm Heart Sounds: normal S1 and normal S2; no murmur Vessels: posterior tibial pulses present and dorsalis pedis pulses present; no JVD Extremities: no edema Gastrointestinal (Abdomen) normal bowel sounds, soft, nontender, no hepatosplenomegaly Psychiatric A+Ox3, euthymic affect Discharge Data Allergies Allergy/AdvReac Type Severity Reaction Status Date / Time [place] And Derivatives Allergy Severe TONGUE Verified 09/03/19 09:55 SWELLING montelukast [From Singulair] Allergy Unknown Verified 09/03/19 19:36 codeine AdvReac Intermediate DIARRHEA, Verified 09/03/19 09:55 MIGRAINES,HALLUCINATIONS ZAIDA Inhibitors AdvReac Mild DIZZY Verified 09/03/19 09:55 valsartan AdvReac Mild DIZZY Verified 09/03/19 09:55 Opioid Analgesics Allergy Unknown ` Uncoded 09/03/19 09:55 HMG-CoA-R Inhibitors AdvReac Mild STATINS-JACQUELIN Uncoded 09/03/19 09:[address] angio chest PE protocol Routine- IMPRESSION: 1. There is no evidence of pulmonary embolus in the main, lobar, or segmental pu lmonary arteries. 2. There is no airspace consolidation or pleural effusion. 3. Cardiomegaly with evidence of pulmonary artery hypertension. 4. There is a 9 mm right lower lobe pulmonary nodule which has modestly increased in size from 2018 but is new from 2007. This raises concern for a slow-growing lesion such as carcinoid. Nonemergent pulmonology follow-up is recommended. Hospital Course (1) Asthma with exacerbation: Patient's clinical presentation was consistent with asthma exacerbation. She improved with bronchodilators and steroids. She never required oxygen. CTA chest was negative for PE or pneumonia. No fever while hospitalized. Due to her symptoms a COVID-19 test was dispatched. She was in airborne isolation while hospitalized. At discharge, since COVID-19 testing was still pending, she was asked to quarantine at home until results returned. She will take a prednisone taper after discharge. Scripts were given for a nebulizer machine and duonebs. She will also finish a course of doxycycline in the event atypical bacteria (mycoplasma, etc) was the precipitant of her asthma flare. (2) Chest pain: Likely due to bronchoconstriction as her description of the chest discomfort was that of a b/l tightness and worsened by cough. Symptoms were not consistent with ischemic chest pain. Troponins x 3 were negative. Telemetry was normal. EKG was normal. Stress test was not pursued. (3) HLD (hyperlipidemia): Continue lipitor as previous. (4) Hypertension: Continue amlodipine as previous. (5) Pulmonary nodule: RLL, 9mm in size. Patient was made aware of this finding from her chest CT. A referral will be made to the [facility] Pulmonary Nodule program to follow this nodule. Total Time Total Time Spent Total Time Spent (In Minutes): 35 Total Time Includes: Examination of the Patient, Discharge Planning and Medication Reconciliation Discharge Plan Discharge Items Patient Disposition: Home - Self-Care Reason For Visit: CHEST PAIN Discharge Diagnosis: 1. asthma exacerbation (cough/wheezing due to active asthma) - improving 2. chest pain/tightness likely due to #1 - improved; no evidence of heart attack 3. COVID-19 testing PENDING at time of discharge but risk of COVID-19 is relatively low Activity: As commented below Activity Comment: gradually increase activities over the next 3-5 days Non-emergency contact: Primary Care Provider Call non-emergency contact if: you have any medication questions, your symptoms worsen and you have a fever Follow-up/Referrals: Perry Tirado MD [Primary Care Provider] - (see Dr Tirado in 3-4 days for recheck of lungs (if COVID test is NEGATIVE); if COVID test is positive he likely will do a "virtual"/video visit ) Diet: Heart Healthy Addtl Attending Provider Instructions: You were treated for asthma exacerbation with nebulizer treatments and prednisone. Your chest tightness/discomfort was likely from "tight" airways due to your asthma flare-up. Your symptoms again improved with neb treatments. 3 sets of blood work looking for heart attack were negative/normal. Your CAT scan showed NO blood clots or pneumonia. However, it did show a right- sided nodule that will need REPEAT IMAGING to ensure it is benign. [facility] has a "pulmonary nodule program" that will help coordinate your follow-up for this. Due to cough and other symptoms a COVID-19 test was sent. It is still pending at time of discharge. UNTIL YOUR COVID-19 TEST RETURNS YOU WILL NEED TO QUARANTINE YOURSELF AT HOME. THUS, AVOID CONTACT WITH OTHERS IN YOUR HOME AND DO NOT LEAVE YOUR HOME UNTIL THE TEST HAS RETURNED. SLEEP IN A SEPARATE AREA FROM YOUR AND USE A DIFFERENT BATHROOM. I WILL CALL YOU ONCE YOUR TEST RESULTS RETURN. Recommendations: 1. prednisone x 10 days; start this TOMORROW, 09/05/2019. It is a taper (starts at 60mg, tapers down to 10mg). 2. may use hzvx-eam-ctrtoub mucinex up to 1200mg twice a day for cough/congestion. 3. use your albuterol inhaler with spacer - 2 puffs every 6 hours SCHEDULED for the next 2-3 days or longer. When you begin to feel better you can use as needed for your symptoms. 4. I have given you a prescription for a nebulizer machine. You will need to get this at a medical supply store on Friday. [facility] [employer] or other medical supply stores can get this for you. The medication for the neb machine is available at your pharmacy. Note that the medication for the neb machine is a combination albuterol product. 5. use your flutter valve at home for 3-4 days; this will help open your lungs up and help you feel better faster. 6. follow-up -- please contact your family doctor in the next 3-4 days. 7. in the event your asthma flare was caused by a bacterium please take 6 more days of doxycycline antibiotic. * occasionally doxycycline causes heartburn * it can also cause a rash if you go out in the sun while taking it; thus, cover up and use sunscreen Return to [facility] if - * you have fevers over 100.4 degrees * you have worsening shortness of breath * you have severe diarrhea * you have chest pains * any other concerns Addtl [facility] Provider Instructions: Coronavirus disease 2019 (COVID-19) is a virus that causes a respiratory illness. It is caused by a coronavirus called 2019 novel coronavirus (2019- nCoV). There are many types of coronavirus. Coronaviruses are a very common cause of bronchitis. They may sometimes cause lung infection(pneumonia). Symptoms can range from mild to severe respiratory illness. These viruses are also foundin some animals. COVID-19 was first found in people in [facility], in late 2018. It spreads through droplets of fluid that a person coughs or sneezes into the air. It may be spread if you touch a surface with virus on it, such as a handle or object, and then touch your mouth. What are the symptoms of COVID-19? Some people have no symptoms or mild symptoms. Symptoms may appear 2 to 14 days after contact with the virus. Symptoms can include: Fever Coughing Trouble breathing What are possible complications from COVID-19? In many cases, this virus can cause infection (pneumonia) in both lungs. In some cases, this can cause . How is COVID-19 diagnosed? Your healthcare provider will ask about your symptoms. He or she will also ask about your recent travel and contact with sick people. Testing for the virus is only done through the CDC. If yourhealthcare provider thinks you may have COVID- 19, he or she will work with your local health department and the CDC on t esting. Follow all instructions from your healthcare provider. COVID-19 is diagnosed by: Nasal and throat swab. A cotton-tipped swab is wiped inside your nose or throat. This is done to check for viruses in your nasal mucus. Sputum culture. A small sample of mucus coughed from your lungs (sputum) is collected if you have a cough. It is checked for the virus. How is COVID-19 treated? There is currently no medicine to treat the virus. Treatment is done to help your body while it fights the virus. This is known as supportive care. Supportive care may include: Pain medicine. These include acetaminophen and ibuprofen. They are used to help ease pain and reduce fever. Bed rest. This helps your body fight the illness. For severe illness, you may need to stay in the hospital. Care during severe illness may include: IV (intravenous) fluids.These are given through a vein to help keep your body hydrated. Oxygen. Supplemental oxygen or ventilation with a breathing machine (ventilator) may be given. This is done to keep enough oxygen in your body. Are you at risk for COVID-19? If youve been to a place where people have been sick with this virus, you are at risk for infection. You are at risk if you: Recently traveled to an affected area Had contact with a sick person who recently traveled to this area Had contact with a person who was diagnosed with COVID-19 How can COVID-19 be prevented? There is no vaccine yet. The best prevention is to not have contact with the virus. The CDC advises that people should not travel to areas where there are COVID-19 outbreaks right now for any reason that is not urgent. To help prevent spreading the infection, wash your hands often, or use an alcohol-basedhand kitchen helper. If you are in an area with COVID-19: Wash your hands often. Or use an alcohol-based hand kitchen helper often. Only touch your eyes, nose, or mouth with clean hands. Dont have contact with people who are sick. Follow local instructions about being in public. For example, you may be told to not use public transport for a period of time. Stay away from markets that have live or animals. Wash your hands after touching any animals. Don't touch animals that may be sick. Dont share eating or drinking tools with sick people. Dont kiss someone who is sick. Clean surfaces often with disinfectant. If you were in an area with COVID-19 in the last 14 days: Call your healthcare provider. He or she can talk with local health staff to see what action may be needed. Follow all instructions from your provider. Take your temperature every morning and evening for at least 14 days. This is to check for fever. Keep a record of the readings. Keep watch for symptoms of the virus. Tell your provider right away if you have symptoms. If you were in an area with COVID-19 and have a fever or other symptoms: Dont panic. Keep in mind that other illnesses can cause similar symptoms. Stay away from work, school, and public places. Limit physical contact with family members. Don't kiss anyone or share eating or drinking utensils. Clean surfaces you touch with disinfectant. This is to help prevent the virus from spreading. Call your healthcare provider. Explain that you have been exposed to COVID-19 and have symptoms. Do this before going to any hospital. Wait for instructions. Keep in mind that healthcare staff may wear protective equipment such as masks, gowns, gloves, and eye protection. You may be put in a separate room. This is to prevent the possible virus from spreading. Tell the healthcare staff about recent travel. This includes local travel on public transport. Staff may need to find other people you have been in contact with. Follow all instructions the healthcare staff give you. If you have been diagnosed with COVID-19 Follow all instructions from your healthcare provider. Dont leave your home, except to get medical care. Call your healthcare providers office before going. They can prepare and give you instructions. This will help prevent the virus from spreading. Dont go to work, school, or public areas. Dont use public transport or taxis. Stay away from other people in your home. Have them wear face masks around you. Dont share household items or food. Wear a face mask if you can. This includes at home or in a medical facility. Cover your face with a tissue when you cough or sneeze. Throw the tissue away. Wash your hands. Wash your hands often. Caregivers should: Follow all instructions from healthcare staff. Wear a face mask and protective clothing as advised. Wash hands often. Keep track of the sick persons symptoms. Clean surfaces, fabrics, and laundry thoroughly. Keep other people away from the sick person. When to call your healthcare provider Call your healthcare provider: If youve recently traveled and have symptoms If you have been diagnosed with COVID-19 and your symptoms are worse To learn more To find out more about COVID-19, visit the CDC website at www.cdc.gov/coronavirus/2019-ncov/index.html. [employer]. [address] [place] [address], [place] [address]. All rights reserved. This information is not intended as a substitute for professional medical care. Always follow your healthcare professional's instructions. This information has been adapted from [employer] Pending Studies at Discharge: Yes Studies:: COVID-19 testing Stand-Alone Forms: My [facility] [employer] Smoking Cessation Medications and DC Order Prescriptions: New doxycycline hyclate 100 mg Capsule 100 mg PO BID 6 Days Qty: 12 RF: 0 ipratropium-albuterol 0.5 mg-3 mg(2.5 mg base)/3 mL Solution For Nebulization 3 ml NEB Q6H PRN (Reason: cough/wheeze/shortness of breath) Qty: 1 RF: 0 prednisone 10 mg tablet 10 mg PO DIRECTED Qty: 35 RF: 0 (DME) nebulizers Misc See Rx Instructions .ROUTE .MEDSUPPLY Qty: 1 RF: 0 Continued atorvastatin 10 mg tablet 10 mg PO QAM RF: 0 amlodipine 2.5 mg tablet 2.5 mg PO QAM RF: 0 allopurinol 100 mg tablet 200 mg PO QAM RF: 0 aspirin 81 mg Tablet,Delayed Release (Dr/Ec) 81 mg PO QAM RF: 0 montelukast 10 mg tablet 10 mg PO QAM RF: 0 cyanocobalamin (vitamin B-12) [Vitamin B-12] 1,000 mcg Tablet 1,000 mcg PO DAILY PRN (Reason: .) RF: 0 cholecalciferol (vitamin D3) [Vitamin D3] 25 mcg (1,000 unit) Tablet 0 mcg PO QAM RF: 0 Probiotic 3 billion cell Capsule 0 mmu cells PO QAM RF: 0 aspirin 500 mg Tablet 1,000 mg PO UD RF: 0 Discharge Orders: Discharge Order (Routine); Ordered 09/04/19 Ordered By: Perry Fishman Admission Data Admit Date/Time: 09/03/19 13:06 Attending Provider: Perry Fishman Admit Provider: Geraldo Yeung Primary Care Provider: Perry Tirado Other Providers: Geraldo Yeung Other Interventions: Discharge Summary Assessment (RN) Last Done: 09/04/19 12:57 DC Date/Time DO NOT enter until pt leaves facility: 09/04/19 14:15 Coding Level of Care Code 94411 OBS Care - Discharge Diagnoses Asthma with exacerbation J45.901 Chest pain R07.9 HLD (hyperlipidemia) E78.5 Hypertension I10 Pulmonary nodule R91.1
--- NOTE | 2019-09-04 14:24 | Electrocardiogram Report ---
Test Reason : Blood Pressure : / mmHG Vent. Rate : 077 BPM Atrial Rate : 077 BPM P-R Int : 146 ms QRS Dur : 088 ms QT Int : 408 ms P-R-T Axes : 032 078 079 degrees QTc Int : 461 ms Normal sinus rhythm Normal ECG When compared with ECG of 03-SEP-2019 09:27, No significant change was found Confirmed by [place] ([id number]) on 09/04/2019 2:24:16 PM Referred By: Perry Tirado Confirmed By:[place]
--- NOTE | 2019-09-04 14:38 | Electrocardiogram Report ---
Test Reason : Blood Pressure : / mmHG Vent. Rate : 094 BPM Atrial Rate : 094 BPM P-R Int : 142 ms QRS Dur : 096 ms QT Int : 386 ms P-R-T Axes : 024 078 079 degrees QTc Int : 482 ms Normal sinus rhythm Normal ECG When compared with ECG of 03-SEP-2019 10:48, (unconfirmed) No significant change was found Confirmed by [place] ([id number]) on 09/04/2019 2:38:10 PM Referred By: Perry Tirado Confirmed By:[place]
[2019-09-04] MEDS ORDERED: MONTELUKAST SODIUM 10 MG TABLET PO SCH (20:00)
== END 2019-09-04 14:15 | disposition home or self-care (01) ==
LOC: ED 09:13 → 2S 09:13 → SUATTDRO 13:06 → 2S 14:44

== ENCOUNTER 2022-09-27 08:49 | Observation (INO) ==
[2022-09-27] MEDS ORDERED: SODIUM CHLORIDE 0.9% 1000ML 1,000 ML IV ONE (09:52)
[2022-09-27] MEDS ORDERED: ONDANSETRON INJ 2 MG/ML 2 ML VIAL IV STA ×2 (09:52→11:45)
--- NOTE | 2022-09-27 10:12 | Emergency Department Note ---
History of Present Illness General Chief complaint: Dizziness Stated complaint: DIZZINESS, NAUSEA Time Seen by Provider: 09/27/22 09:01 Source: patient, family (Daughter who is at the bedside), RN notes reviewed and old records reviewed Mode of arrival: ambulatory Limitations: no limitations History of Present Illness Maximum Pain Intensity: 8 This patient is a 77-year-old female who comes in after feeling dizzy and nauseated. She was seen 2 days ago and extensive work-up including a negative CT angio of her chest as her D-dimer is mildly elevated she continues to feel dizzy is more of an unsteadiness occasionally spinning very vague but she had no chest pain shortness breath or abdominal pain she did have diarrhea x1 a couple days ago but none since. They recently increased her medication with her blood pressure as she was running high. No blood or melena stool no travel no sick contacts. No fever or chills Home Medications Medication Instructions Recorded Confirmed Type cyanocobalamin (vitamin B-12) 1,000 mcg PO DAILY 09/03/19 09/27/22 History 1,000 mcg tablet (Vitamin B-12) nebulizers #1 ea 09/04/19 09/27/22 Rx ipratropium 0.5 mg-albuterol 3 mg 3 ml NEB Q6H PRN 09/23/19 09/27/22 Rx (2.5 mg base)/3 mL nebulization cough/wheeze/shortness of breath soln #1 box albuterol sulfate 90 mcg/actuation 2 puff inhalation Q6H PRN 10/21/19 09/27/22 History aerosol inhaler shortness of breath/wheezing aspirin 81 mg tablet,delayed 81 mg PO DAILY 06/29/20 09/27/22 History release (Adult Aspirin Regimen) irbesartan 300 mg tablet (Avapro) 300 mg PO DAILY 01/15/22 09/27/22 History metoprolol succinate 25 mg 25 mg PO DAILY 01/15/22 09/27/22 History tablet,extended release 24 hr amlodipine 5 mg tablet 5 mg PO DAILY 09/25/22 09/27/22 History turmeric root extract 500 mg tablet 500 mg PO DAILY 09/27/22 09/27/22 History Allergies Allergy/AdvReac Type Severity Reaction Status Date / Time [place]ola And Derivatives Allergy Severe TONGUE Verified 09/27/22 12:10 SWELLING montelukast [From Singulair] Allergy Unknown Verified 09/27/22 12:10 codeine AdvReac Intermediate DIARRHEA, Verified 09/27/22 12:10 MIGRAINES,HALLUCINATIONS ZAIDA Inhibitors AdvReac Mild DIZZY Verified 09/27/22 12:10 valsartan AdvReac Mild DIZZY Verified 09/27/22 12:10 Opioid Analgesics Allergy Unknown ` Uncoded 09/27/22 12:10 HMG-CoA-R Inhibitors AdvReac Mild STATINS-JACQUELIN Uncoded 09/27/22 12:10 LGIA Past Med/Surg History Medical History HLD (hyperlipidemia) Hypertension Family History Other Family history non-contributory Social History Smoking Status: Never smoker Hx Alcohol Use: No Hx Substance Use: No Preferred Language: Chinese Beliefs That Will Affect Care: None Current Living Situation: Spouse Feels Safe at Home: Yes Assistive Devices: None Immunizations: Past medical historyhypertension, migraines, memory issues. She is on no blood thinners. Review of Systems A total of 10 systems reviewed and were otherwise negative Physical Exam Vital Signs Vital Signs - 24 hr 09/27/22 08:55 09/27/22 10:15 09/27/22 10:15 Temperature 36.2 C L Temperature Source Temporal Artery Scan Pulse Rate 64 Pulse Rate [Right Finger] 63 Respiratory Rate 20 18 Respiratory Effort / Characteristics Non-Labored Respiratory Depth Normal Blood Pressure 155/70 H Blood Pressure [Left Arm] 186/85 H Blood Pressure Mean 98 Blood Pressure Mean [Left Arm] 118 Pulse Oximetry 97 94 94 Oxygen Delivery Method Room Air Room Air Sepsis Recent Fever Within 48 Hours No Sepsis New/Unexplained Change in Mental Status N/A Sepsis Action Taken by Nursing No Action Required 09/27/22 10:21 09/27/22 10:20 09/27/22 12:17 Temperature Temperature Source Pulse Rate 62 61 Pulse Rate [Right Finger] 68 Respiratory Rate 16 Respiratory Effort / Characteristics Respiratory Depth Blood Pressure Blood Pressure [Left Arm] 165/83 H Blood Pressure Mean Blood Pressure Mean [Left Arm] 110 Pulse Oximetry 95 97 Oxygen Delivery Method Room Air Sepsis Recent Fever Within 48 Hours Sepsis New/Unexplained Change in Mental Status Sepsis Action Taken by Nursing 09/27/22 13:58 Temperature Temperature Source Pulse Rate 65 Pulse Rate [Right Finger] Respiratory Rate Respiratory Effort / Characteristics Respiratory Depth Blood Pressure Blood Pressure [Left Arm] Blood Pressure Mean Blood Pressure Mean [Left Arm] Pulse Oximetry Oxygen Delivery Method Sepsis Recent Fever Within 48 Hours Sepsis New/Unexplained Change in Mental Status Sepsis Action Taken by Nursing General: Well developed well nourished older female who is holding emesis bag but otherwise appears in no acute distress, breathing comfortably on room air. Normal speech HEENT: Normal cephalic atraumatic. Pupils are equal round and reactive to light. Extraocular movements are intact. There may be a few subtle beats of horizontal nystagmus bilaterally. Oropharynx is pink with moist mucous memb ranes. No swelling of the mouth lips or tongue. Neck: Supple with a midline trachea. No meningeal signs or stiffness, no JVD or bruits. No Stridor. Chest: Clear to auscultation bilaterally. No wheezes or rhonchi. No increased work of breathing. Heart: Regular rate and rhythm without murmurs or gallops. Abdomen: Soft nontender, nondistended without rebound guarding or rigidity. Extremities: No cyanosis clubbing or edema. No calf tenderness or assymetry Spine/Back. Non tender to palpation. No CVA tenderness Skin: Good turgor without rashes. Neurologic exam: Cranial nerves two through 12 are intact. Motor and sensation are intact and symmetrical throughout. No tremor. Finger-nose intact. Course Administered Medications Discontinued Medications Sodium Chloride (Nss 1000ml) 1,000 mls @ 999 mls/hr IV .Q1H1M ONE Stop: 09/27/22 10:52 Last Infusion: 09/27/22 12:01 Dose: 0 mls/hr Documented By: Admin: 09/27/22 10:23 Dose: 999 mls/hr Documented By: JOSE Ioversol (Ioversol 350 Mg 125ml Prefilled Syringe) 120 ml IV ONCE ONE Stop: 09/27/22 11:29 Last Admin: 09/27/22 11:28 Dose: 120 ml Documented By: ZEE Ondansetron HCl (Ondansetron Inj 2 Mg/Ml 2 Ml Vial) 4 mg IV NOW STA Stop: 09/27/22 09:53 Last Admin: 09/27/22 10:22 Dose: 4 mg Documented By: JOSE Ondansetron HCl (Ondansetron Inj 2 Mg/Ml 2 Ml Vial) 4 mg IV NOW STA Stop: 09/27/22 11:46 Last Admin: 09/27/22 12:15 Dose: 4 mg Documented By: ESTELA Medical Decision Making Differential Diagnosis Vertigo, dehydration, vascular disease, infection, electrolyte or metabolic abnormality, cardiac disease Medical Records Attestation: I reviewed the patient's medical records. Home Medications Current Medication List: was personally reviewed by me Laboratory Data Attestation: I reviewed the patient's lab results. 09/27/22 10:15 09/27/22 10:15 Lab Results 09/27/22 09/27/22 09/27/22 Range/Units 10:15 10:15 10:15 WBC 7.62 (4.8-10.8) K/ul RBC 4.36 (4.20-5.40) M/uL Hgb 14.2 (12.0-16.0) g/dl Hct 41.6 (37.0-47.0) % MCV 95.4 (80.0-100.0) fL MCH 32.6 (25.0-34.0) pg MCHC 34.1 (32.0-36.0) g/dL RDW Std Deviation 40.9 (36.4-46.3) fL RDW Coeff of Ciara 11.7 (11.5-14.5) % Plt Count 252 (130-400) K/uL MPV 8.6 L (9.4-12.4) fL Immature Gran % (Auto) 0.4 % Neut % (Auto) 73.7 % Lymph % (Auto) 20.7 % [place] % (Auto) 3.8 % Eos % (Auto) 0.9 % Baso % (Auto) 0.5 % Neut # (Auto) 5.61 (1.40-6.50) K/uL Lymph # (Auto) 1.58 (1.2-3.4) K/uL [place] # (Auto) 0.29 (0.11-0.59) K/uL Eos # (Auto) 0.07 (0-0.50) K/uL Baso # (Auto) 0.04 (0-0.2) K/uL Immature Gran # (Auto) 0.03 (0.01-0.20) K/uL Sodium 135 L (136-145) mmol/L Potassium 4.4 (3.5-5.1) mmol/L Chloride 101 (98-107) mmol/L Carbon Dioxide 27 (21-32) mmol/L Anion Gap 7 (3-11) BUN 10 (6-23) mg/dl Creatinine 0.80 (0.6-1.2) mg/dl Est Cr Clr Drug Dosing 58.7 ml/min Est GFR ( Amer) 83.6 ml/min Est GFR (Non-Af Amer) 72.1 ml/min BUN/Creatinine Ratio 12.5 (10-20) Glucose 144 H (70-99(Fasting)) mg/dl Calcium 9.2 (8.6-10.3) mg/dl Total Bilirubin 0.5 (0.2-1.0) mg/dl AST 18 (13-39) U/L ALT 22 (7-52) U/L Alkaline Phosphatase 87 (34-104) U/L Troponin I High Sens 3.4 (0-14) pg/ml Total Protein 7.3 (6.0-8.3) gm/dl Albumin 4.2 (3.4-5.0) gm/dl Globulin 3.1 (2.5-4.0) gm/dl Albumin/Globulin Ratio 1.4 (0.9-2) Lipase Cancelled Urine Color Urine Appearance (Clear) Urine pH (4.5-7.5) Ur Specific [place] (1.000-1.030) Urine Protein (Negative) Urine Glucose (UA) (Negative) Urine Ketones (Negative) Urine Blood (Negative) Urine Nitrite (Negative) Urine Bilirubin (Negative) Urine Urobilinogen (Negative) Ur Leukocyte Esterase (Negative) Urine WBC (Auto) (0-5) /hpf Urine RBC (Auto) (0-4) /hpf U Hyaline Cast (Auto) (0-5) /lpf U Epithel Cells (Auto) (0-5) /lpf Urine Bacteria (Auto) (Negative) Adenovirus (PCR) (NotDetected) B. pertussis DNA (PCR) (NotDetected) B.parapertussis DNA PCR (NotDetected) C. pneumoniae DNA (PCR) (NotDetected) Coronavirus OC43 (PCR) (NotDetected) Coronavirus HKU1 (PCR) (NotDetected) Coronavirus 229E (PCR) (NotDetected) SARS-CoV-2 (PCR) (NotDetected) Coronavirus NL63 (PCR) (NotDetected) Human Metapneumovir PCR (NotDetected) Influenza Type A (PCR) (NotDetected) Influenza Type B (PCR) (NotDetected) M. pneumoniae (PCR) (NotDetected) Parainfluenza 1 (PCR) (NotDetected) Parainfluenza 2 (PCR) (NotDetected) Parainfluenza 3 (PCR) (NotDetected) Parainfluenza 4 (PCR) (NotDetected) RSV (PCR) (NotDetected) Entero/Rhino (PCR) (NotDetected) 09/27/22 09/27/22 Range/Units 12:35 12:35 WBC (4.8-10.8) K/ul RBC (4.20-5.40) M/uL Hgb (12.0-16.0) g/dl Hct (37.0-47.0) % MCV (80.0-100.0) fL MCH (25.0-34.0) pg MCHC (32.0-36.0) g/dL RDW Std Deviation (36.4-46.3) fL RDW Coeff of Ciara (11.5-14.5) % Plt Count (130-400) K/uL MPV (9.4-12.4) fL Immature Gran % (Auto) % Neut % (Auto) % Lymph % (Auto) % [place] % (Auto) % Eos % (Auto) % Baso % (Auto) % Neut # (Auto) (1.40-6.50) K/uL Lymph # (Auto) (1.2-3.4) K/uL [place] # (Auto) (0.11-0.59) K/uL Eos # (Auto) (0-0.50) K/uL Baso # (Auto) (0-0.2) K/uL Immature Gran # (Auto) (0.01-0.20) K/uL Sodium (136-145) mmol/L Potassium (3.5-5.1) mmol/L Chloride (98-107) mmol/L Carbon Dioxide (21-32) mmol/L Anion Gap (3-11) BUN (6-23) mg/dl Creatinine (0.6-1.2) mg/dl Est Cr Clr Drug Dosing ml/min Est GFR ( Amer) ml/min Est GFR (Non-Af Amer) ml/min BUN/Creatinine Ratio (10-20) Glucose (70-99(Fasting)) mg/dl Calcium (8.6-10.3) mg/dl Total Bilirubin (0.2-1.0) mg/dl AST (13-39) U/L ALT (7-52) U/L Alkaline Phosphatase (34-104) U/L Troponin I High Sens (0-14) pg/ml Total Protein (6.0-8.3) gm/dl Albumin (3.4-5.0) gm/dl Globulin (2.5-4.0) gm/dl Albumin/Globulin Ratio (0.9-2) Lipase Urine Color Yellow Urine Appearance Clear (Clear) Urine pH 7.0 (4.5-7.5) Ur Specific [place] 1.035 H (1.000-1.030) Urine Protein 2+ H (Negative) Urine Glucose (UA) Negative (Negative) Urine Ketones Negative (Negative) Urine Blood 2+ H (Negative) Urine Nitrite Negative (Negative) Urine Bilirubin Negative (Negative) Urine Urobilinogen Negative (Negative) Ur Leukocyte Esterase Negative (Negative) Urine WBC (Auto) 1-5 (0-5) /hpf Urine RBC (Auto) 10-30 H (0-4) /hpf U Hyaline Cast (Auto) 0 (0-5) /lpf U Epithel Cells (Auto) 0-5 (0-5) /lpf Urine Bacteria (Auto) Negative (Negative) Adenovirus (PCR) Not Detected (NotDetected) B. pertussis DNA (PCR) Not Detected (NotDetected) B.parapertussis DNA PCR Not Detected (NotDetected) C. pneumoniae DNA (PCR) Not Detected (NotDetected) Coronavirus OC43 (PCR) Not Detected (NotDetected) Coronavirus HKU1 (PCR) Not Detected (NotDetected) Coronavirus 229E (PCR) Not Detected (NotDetected) SARS-CoV-2 (PCR) Not Detected (NotDetected) Coronavirus NL63 (PCR) Not Detected (NotDetected) Human Metapneumovir PCR Not Detected (NotDetected) Influenza Type A (PCR) Not Detected (NotDetected) Influenza Type B (PCR) Not Detected (NotDetected) M. pneumoniae (PCR) Not Detected (NotDetected) Parainfluenza 1 (PCR) Not Detected (NotDetected) Parainfluenza 2 (PCR) Not Detected (NotDetected) Parainfluenza 3 (PCR) Not Detected (NotDetected) Parainfluenza 4 (PCR) Not Detected (NotDetected) RSV (PCR) Not Detected (NotDetected) Entero/Rhino (PCR) Not Detected (NotDetected) Imaging Data Attestation: I personally reviewed and interpreted this imaging study as follows: My Impression: Head CTno hemorrhage or mass effect seen Abdominal pelvis CT. I do not appreciate any bowel obstruction Radiologist's Impression: Head CT 09/27/22 09:51 CT angio head w con, CT head/brain wo con, CT angio neck with con CLINICAL HISTORY: 77 years-old Female with neuro deficit, acute stroke suspected. Acute stroke like symptoms with dizziness and nausea COMPARISON STUDY: Brain MRI 07/04/2020 TECHNIQUE: Unenhanced axial CT scan of the brain is performed. Subsequently, following the IV administration of 120 cc of Optiray, CT angiogram of the head and neck was performed from the aortic arch to the skull apex. Images are reviewed in the axial, sagittal, and coronal planes. 3-D MIPS images are created and assessed. IV contrast was administered without complication. All measurements were obtained according to NASCET criteria. A dose lowering technique was utilized adhering to the principles of ALARA. CT DOSE: 1090.23 mGy.cm FINDINGS: CT BRAIN: There is no acute intracranial hemorrhage, midline shift, hydrocephalus, intracranial mass, territorial ischemia or abnormal extra-axial collections. No abnormal intra-axial or extra-axial enhancement. Involutional changes with chronic microvascular ischemic disease. Cerebrovascular calcifications. Mastoid air cells and middle ear cavities are clear. No calvarial fracture. Prior bilateral lens repair. Paranasal sinuses are clear. CT ANGIOGRAM OF THE HEAD AND NECK: Atherosclerosis of the thoracic arch and proximal great vessels. Moderate atherosclerosis of the common carotid arteries. Extensive atherosclerotic plaque of the carotid bulbs and proximal cervical segments of the internal carotid art eries. There is 70% stenosis at the origin of the left ICA on image 220 series 6. There is 50% stenosis at the origin of the right ICA. Minimal irregularity involves the distal cervical segment left ICA on image 298 which may be secondary to atherosclerosis. Mild luminal narrowing of the bilateral middle cerebral arteries. The anterior cerebral arteries are patent. The vertebrobasilar system and posterior cerebral arteries are widely patent. There is no aneurysm, high-grade stenosis, or proximal branch occlusion identified. Dural sinuses appear patent. Median sternotomy. Unremarkable soft tissues. Degenerative changes of the cervical spine. IMPRESSION: 1. No acute intracranial abnormality. 2. Severe atherosclerosis of the carotid bulbs with resultant 70% stenosis of the proximal left ICA and 50% stenosis on the right. 3. Otherwise unremarkable CTA. ACT 112: Negative or not required by law. The above report was generated using voice recognition software. It may contain grammatical, syntax or spelling errors. Electronically signed by: Wilber Jasso M.D. 09/27/2022 11:52 AM Head CTA 09/27/22 09:51 CT angio head w con, CT head/brain wo con, CT angio neck with con CLINICAL HISTORY: 77 years-old Female with neuro deficit, acute stroke suspected. Acute stroke like symptoms with dizziness and nausea COMPARISON STUDY: Brain MRI 07/04/2020 TECHNIQUE: Unenhanced axial CT scan of the brain is performed. Subsequently, following the IV administration of 120 cc of Optiray, CT angiogram of the head and neck was performed from the aortic arch to the skull apex. Images are reviewed in the axial, sagittal, and coronal planes. 3-D MIPS images are created and assessed. IV contrast was administered without complication. All measurements were obtained according to NASCET criteria. A dose lowering technique was utilized adhering to the principles of ALARA. CT DOSE: 1090.23 mGy.cm FINDINGS: CT BRAIN: There is no acute intracranial hemorrhage, midline shift, hydrocephalus, intracranial mass, territorial ischemia or abnormal extra-axial collections. No abnormal intra-axial or extra-axial enhancement. Involutional changes with chronic microvascular ischemic disease. Cerebrovascular calcifications. Mastoid air cells and middle ear cavities are clear. No calvarial fracture. Prior bilateral lens repair. Paranasal sinuses are clear. CT ANGIOGRAM OF THE HEAD AND NECK: Atherosclerosis of the thoracic arch and proximal great vessels. Moderate atherosclerosis of the common carotid arteries. Extensive atherosclerotic plaque of the carotid bulbs and proximal cervical segments of the internal carotid arteries. There is 70% stenosis at the origin of the left ICA on image 220 series 6. There is 50% stenosis at the origin of the right ICA. Minimal irregularity involves the distal cervical segment left ICA on image 298 which may be secondary to atherosclerosis. Mild luminal narrowing of the bilateral middle cerebral arteries. The anterior cerebral arteries are patent. The vertebrobasilar system and posterior cerebral arteries are widely patent. There is no aneurysm, high-grade stenosis, or proximal branch occlusion identified. Dural sinuses appear patent. Median sternotomy. Unremarkable soft tissues. Degenerative changes of the cervical spine. IMPRESSION: 1. No acute intracranial abnormality. 2. Severe atherosclerosis of the carotid bulbs with resultant 70% stenosis of the proximal left ICA and 50% stenosis on the right. 3. Otherwise unremarkable CTA. ACT 112: Negative or not required by law. The above report was generated using voice recognition software. It may contain grammatical, syntax or spelling errors. Electronically signed by: Wilber Jasso M.D. 09/27/2022 11:52 AM Neck CTA 09/27/22 09:51 CT angio head w con, CT head/brain wo con, CT angio neck with con CLINICAL HISTORY: 77 years-old Female with neuro deficit, acute stroke suspected. Acute stroke like symptoms with dizziness and nausea COMPARISON STUDY: Brain MRI 07/04/2020 TECHNIQUE: Unenhanced axial CT scan of the brain is performed. Subsequently, following the IV administration of 120 cc of Optiray, CT angiogram of the head and neck was performed from the aortic arch to the skull apex. Images are reviewed in the axial, sagittal, and coronal planes. 3-D MIPS images are created and assessed. IV contrast was administered without complication. All measurements were obtained according to NASCET criteria. A dose lowering technique was utilized adhering to the principles of ALARA. CT DOSE: 1090.23 mGy.cm FINDINGS: CT BRAIN: There is no acute intracranial hemorrhage, midline shift, hydrocephalus, intracranial mass, territorial ischemia or abnormal extra-axial collections. No abnormal intra-axial or extra-axial enhancement. Involutional changes with chronic microvascular ischemic disease. Cerebrovascular calcifications. Mastoid air cells and middle ear cavities are clear. No calvarial fracture. Prior bilateral lens repair. Paranasal sinuses are clear. CT ANGIOGRAM OF THE HEAD AND NECK: Atherosclerosis of the thoracic arch and proximal great vessels. Moderate atherosclerosis of the common carotid arteries. Extensive atherosclerotic plaque of the carotid bulbs and proximal cervical segments of the internal carotid arteries. There is 70% stenosis at the origin of the left ICA on image 220 series 6. There is 50% stenosis at the origin of the right ICA. Minimal irregularity involves the distal cervical segment left ICA on image 298 which may be secondary to atherosclerosis. Mild luminal narrowing of the bilateral middle cerebral arteries. The anterior cerebral arteries are patent. The vertebrobasilar system and posterior cerebral arteries are widely patent. There is no aneurysm, high-grade stenosis, or proximal branch occlusion identified. Dural sinuses appear patent. Median sternotomy. Unremarkable soft tissues. Degenerative changes of the cervical spine. IMPRESSION: 1. No acute intracranial abnormality. 2. Severe atherosclerosis of the carotid bulbs with resultant 70% stenosis of the proximal left ICA and 50% stenosis on the right. 3. Otherwise unremarkable CTA. ACT 112: Negative or not required by law. The above report was generated using voice recognition software. It may contain grammatical, syntax or spelling errors. Electronically signed by: Wilber Jasso M.D. 09/27/2022 11:52 AM Venous Doppler Study 09/27/22 09:53 BILATERAL LOWER EXTREMITY VENOUS DOPPLER HISTORY: Acute dizziness with nausea and vomiting EVAL FO DVT, ELEVATED DDIME COMPARISON STUDY: 02/05/2016 FINDINGS: There is normal compressibility, flow, and augmentation within the bilateral lower extremity deep venous systems. IMPRESSION: No DVT within the right or left lower extremity. ACT 112: Negative or not required by law. Electronically signed by: Wilber Jasso M.D. 09/27/2022 1:18 PM Abdomen/Pelvis CT 09/27/22 12:[address] WITHOUT CONTRAST CT DOSE: 1189.73 mGy.cm HISTORY: Generalized abdominal pain. TECHNIQUE: Multiaxial CT images of the abdomen and pelvis were performed without contrast. A dose lowering technique was utilized adhering to the principles of ALARA. COMPARISON STUDY: Abdomen and pelvis CT 08/23/2018. FINDINGS: There is again noted a 9 mm nodule within the right lower lobe. Bibasilar linear densities consistent with subsegmental atelectasis or scarring. No pneumoperitoneum. No pneumatosis. There are poststernotomy changes. No acute fractures identified. The unenhanced liver, spleen, adrenal glands, and pancreas are within normal limits. Residual contrast within the urinary system from the prior CT examination. There are few bilateral renal hypodense lesions which measure up to 9 mm. These are technically too small to characterize but statistically represent cysts. No hydronephrosis. A punctate calcification within the right deep pelvis on image 290 remains stable. This likely represents a phlebolith. Small amount of vicarious excretion of contrast seen within the gallbladder. No gallbladder wall thickening. Calcified plaque within the normal caliber abdominal aorta. No retroperitoneal or pelvic lymphadenopathy. No pelvic free fluid. Prior hysterectomy. No bladder wall thickening. Suboptimal evaluation for bowel pathology due to the lack of intravenous and oral contrast. However, there is no definite bowel wall thickening or obstruction. The colon is decompressed. Colonic diverticulosis. No evidence for acute diverticulitis. Normal appendix. IMPRESSION: 1. No definite bowel wall thickening or obstruction. 2. Normal appendix. 3. Colonic diverticulosis. No evidence for acute diverticulitis. 4. Stable 9 mm right lower lobe pulmonary nodule. 5. Additional findings as described above. ACT 112: Negative or not required by law. Electronically signed by: Thomas Abad M.D. 09/27/2022 2:55 PM ECG Data Attestation: I personally reviewed and interpreted this ECG as follows: Indication: + other (Dizziness) Rate (beats per minute): 60 Rhythm: + normal sinus ECG Intervals/blocks: + Normal QRS, + Normal QT and + Normal IN ECG [place]: + Normal ECG ST segments: + Normal ST segments ECG Findings: no PACs or no PVCs Comparison ECG Date: from (09/25/22) Change: no significant change MDM Narrative This patient comes in described above she has had dizziness and nausea. She has a normal neurologic exam at present and stable vital signs. Her blood pressure is on the slightly hypertensive side. IV access was established and she was hydrated with a 1 Liter IV normal saline bolus. multiple blood testing was obtained. I did review her recent ED visit as well as her CAT scan from the there is no evidence of PE. her D-dimer was elevated now she does state she has intermittent calf pain bilaterally so I did add an ultrasound to make sure does not have a DVT although I doubt that would explain her other symptoms. I did also order a CT of the head with angiography of the head and neck for stroke type work-up as well. Reviewing her chart she has had an MRI in the past that looked okay but its been a year or so ago. She was given IV Zofran as well. She was given IV fluids although she is not vomiting. she still does not feel well and does have some dry heaves were given additional IV fluids and IV Zofran. EKG does not suggest acute coronary syndrome or arrhythmia her troponin is normal. No white count or fever discussed infection. She has no significant anemia. she has no electrolyte or metabolic abnormalities. CAT scan of her head shows no acute findings CTA of the head and neck show known carotid disease bilaterally. she in fact saw her human resources hr representative recently for this and has been more of a medical management. The vertebral basilar systems are wide open and patent. She did have a CTA of her chest done 2 days ago and has no symptoms to suggest PE. Her D-dimer was elevated she tells me she been having intermittent calf pain so I did order ultrasounds of the legs they were negative. Her vital signs are stable. Her urinalysis does not suggest a UTI. Given her ongoing symptoms I did do a CAT scan of her abdomen as well it was unremarkable. I aldo ked to the patient and her family at length. The daughter is very concerned because she is very symptomatic when she tries to drink anything and is getting weaker. She does not feel she can go home safely she has been not been taking her medications. Given her weakness and her ongoing nausea and symptoms I do think she may warrant admission/observation of consult to the [facility] to see her in the ER for these measures and discussed the case with them. Continuous cardiac monitoring: Orders placed in EMR for continuous cart monitoring: Upon my evaluation patient noted to be in normal sinus rhythm with a rate of 60. Impression & Plan Dizziness, Nausea, Weakness, Lab test negative for COVID-19 virus Discharge Plan Visit Data Chief Complaint: Dizziness Stated Complaint: DIZZINESS, NAUSEA ED Provider: Alec Hartman Discharge Problem: Dizziness, Nausea, Weakness, Lab test negative for COVID-19 virus Forms Stand Alone Forms: My [facility] Prescriptions Prescriptions: No Action ipratropium-albuterol 0.5 mg-3 mg(2.5 mg base)/3 mL solution for nebulization 3 ml NEB Q6H PRN (Reason: cough/wheeze/shortness of breath) Qty: 1 0RF Rx Instructions: diagnosis - J45.901 aspirin [Adult Aspirin Regimen] 81 mg tablet,delayed release (DR/EC) 81 mg PO DAILY metoprolol succinate 25 mg tablet extended release 24 hr 25 mg PO DAILY irbesartan [Avapro] 300 mg tablet 300 mg PO DAILY albuterol sulfate 90 mcg/actuation HFA aerosol inhaler 2 puff inhalation Q6H PRN (Reason: shortness of breath/wheezing) cyanocobalamin (vitamin B-12) [Vitamin B-12] 1,000 mcg Tablet 1,000 mcg PO DAILY (DME) nebulizers Misc See Rx Instructions .ROUTE .MEDSUPPLY Qty: 1 0RF Rx Instructions: As directed with albuterol/ipratropium amlodipine 5 mg tablet 5 mg PO DAILY turmeric root extract 500 mg Tablet 500 mg PO DAILY Referrals Referrals: Elo Alcazar PA-C [Outside Practitioners] -
[2022-09-27 10:37] LABS: Basophils # (auto) 0.04 K/uL (0-0.2); Basophils % (auto) 0.5 %; Eosinophils # (auto) 0.07 K/uL (0-0.50); Eosinophils % (auto) 0.9 %; Hematocrit (blood only) 41.6 % (37.0-47.0); Hemoglobin 14.2 g/dl (12.0-16.0); Immature Granulocytes # (auto) 0.03 K/uL (0.01-0.20); Immature Granulocytes % (auto) 0.4 %; Lymphocytes # (auto) 1.58 K/uL (1.2-3.4); Lymphocytes % (auto) 20.7 %; Mean Corpuscular Hemoglobin 32.6 pg (25.0-34.0); Mean Corpuscular Hgb Conc 34.1 g/dL (32.0-36.0); Mean Corpuscular Volume 95.4 fL (80.0-100.0); Mean Platelet Volume 8.6 fL (9.4-12.4); Monocytes # (auto) 0.29 K/uL (0.11-0.59); Monocytes % (auto) 3.8 %; Neutrophils # (auto) 5.61 K/uL (1.40-6.50); Neutrophils % (auto) 73.7 %; Platelet Count 252 K/uL (130-400); RDW Coefficient of Variation 11.7 % (11.5-14.5); RDW Standard Deviation 40.9 fL (36.4-46.3); Red Blood Count 4.36 M/uL (4.20-5.40); White Blood Count 7.62 K/ul (4.8-10.8)
--- NOTE | 2022-09-27 10:39 | Electrocardiogram Report ---
Test Reason : Blood Pressure : / mmHG Vent. Rate : 060 BPM Atrial Rate : 060 BPM P-R Int : 154 ms QRS Dur : 094 ms QT Int : 448 ms P-R-T Axes : 021 083 090 degrees QTc Int : 448 ms Normal sinus rhythm Normal ECG When compared with ECG of 25-SEP-2022 08:25, No significant change was found Confirmed by Joey Cotton ([id number]) on 09/27/2022 10:38:56 AM Referred By: REFERRED SELF Confirmed By:Joey Cotton
[2022-09-27 10:52] LABS: Albumin Globulin Ratio 1.4 (0.9-2); Albumin Level 4.2 gm/dl (3.4-5.0); BUN Creatinine Ratio 12.5 (10-20); Bilirubin,Total 0.5 mg/dl (0.2-1.0); Calcium 9.2 mg/dl (8.6-10.3); Creatinine Clr Calc Pharmacy 58.7 ml/min; Est GFR (African American) 83.6 ml/min; Est GFR (Non-African American) 72.1 ml/min; Globulin 3.1 gm/dl (2.5-4.0); Potassium 4.4 mmol/L (3.5-5.1); Total Protein 7.3 gm/dl (6.0-8.3)
[2022-09-27 10:59] LABS: Troponin I High Sensitivity 3.4 pg/ml (0-14)
[2022-09-27] MEDS ORDERED: IOVERSOL 350 MG 125mL Prefilled Syringe IV ONE (11:28)
--- NOTE | 2022-09-27 11:54 | CT Scan Report ---
CT angio head w con, CT head/brain wo con, CT angio neck with con CLINICAL HISTORY: 77 years-old Female with neuro deficit, acute stroke suspected. Acute stroke lik e symptoms with dizziness and nausea COMPARISON STUDY: Brain MRI 07/04/2020 TECHNIQUE: Unenhanced axial CT scan of the brain is performed. Subsequently, following the IV adminis tration of 120 cc of Optiray, CT angiogram of the head and neck was performed from the aortic arch to the skull apex. Images are reviewed in the axial, sagittal, and coronal planes. 3-D MIPS images are created and assessed. IV contrast was administered without complication. All measurements were obtain ed according to NASCET criteria. A dose lowering technique was utilized adhering to the principles of ALARA. CT DOSE: 1090.23 mGy.cm FINDINGS: CT BRAIN: There is no acute intracranial hemorrhage, midline shift, hydrocephalus, intracranial mass, territori al ischemia or abnormal extra-axial collections. No abnormal intra-axial or extra-axial enhancement. Involutional changes with chronic microvascular ischemic disease. Cerebrovascular calcifications. Ma stoid air cells and middle ear cavities are clear. No calvarial fracture. Prior bilateral lens repair . Paranasal sinuses are clear. CT ANGIOGRAM OF THE HEAD AND NECK: Atherosclerosis of the thoracic arch and proximal great vessels. Moderate atherosclerosis of the comm on carotid arteries. Extensive atherosclerotic plaque of the carotid bulbs and proximal cervical segm ents of the internal carotid arteries. There is 70% stenosis at the origin of the left ICA on image 2 20 series 6. There is 50% stenosis at the origin of the right ICA. Minimal irregularity involves the distal cervical segment left ICA on image 298 which may be secondary to atherosclerosis. Mild luminal narrowing of the bilateral middle cerebral arteries. The anterior cerebral arteries are patent. The vertebrobasilar system and posterior cerebral arteries are widely patent. There is no aneurysm, high- grade stenosis, or proximal branch occlusion identified. Dural sinuses appear patent. Median sternotomy. Unremarkable soft tissues. Degenerative changes of the cervical spine. IMPRESSION: 1. No acute intracranial abnormality. 2. Severe atherosclerosis of the carotid bulbs with resultant 70% stenosis of the proximal left ICA a nd 50% stenosis on the right. 3. Otherwise unremarkable CTA. ACT 112: Negative or not required by law. The above report was generated using voice recognition software. It may contain grammatical, syntax o r spelling errors. Electronically signed by: Wilber Jasso M.D. 09/27/2022 11:52 AM
--- NOTE | 2022-09-27 13:19 | Ultrasound Report ---
BILATERAL LOWER EXTREMITY VENOUS DOPPLER HISTORY: Acute dizziness with nausea and vomiting EVAL FO DVT, ELEVATED DDIME COMPARISON STUDY: 02/05/2016 FINDINGS: There is normal compressibility, flow, and augmentation within the bilateral lower extremit y deep venous systems. IMPRESSION: No DVT within the right or left lower extremity. ACT 112: Negative or not required by law. Electronically signed by: Wilber Jasso M.D. 09/27/2022 1:18 PM
[2022-09-27 13:37] LABS: Appearance Urine Clear (Clear); Bacteria Urine Automated Negative (Negative); Bilirubin Urine Negative (Negative); Blood Urine 2+ (Negative); Cast Urine Automated 0 /lpf (0-5); Color Urine Yellow; Epithelial Cell Urine Auto 0-5 /lpf (0-5); Glucose Urine UA Negative (Negative); Ketones Urine Negative (Negative); Leukocyte Esterase Urine Negative (Negative); Nitrite Urine Negative (Negative); Protein Urine 2+ (Negative); Specific Gravity Urine 1.035 (1.000-1.030); Urobilinogen Urine Negative (Negative)
[2022-09-27 14:23] LABS: Adenovirus PCR Not Detected (NotDetected); Bordetella parapertussis PCR Not Detected (NotDetected); Bordetella pertussis PCR Not Detected (NotDetected); Chlamydia pneumoniae PCR Not Detected (NotDetected); Coronavirus 229E PCR Not Detected (NotDetected); Coronavirus CoV-2 (COVID19)PCR Not Detected (NotDetected); Coronavirus HKU1 PCR Not Detected (NotDetected); Coronavirus NL63 PCR Not Detected (NotDetected); Coronavirus OC43PCR Not Detected (NotDetected); Human Metapneumovirus PCR Not Detected (NotDetected); Influenza A PCR Not Detected (NotDetected); Influenza B PCR Not Detected (NotDetected); Mycoplasma pneumoniae PCR Not Detected (NotDetected); Parainfluenza Virus 1 PCR Not Detected (NotDetected); Parainfluenza Virus 2 PCR Not Detected (NotDetected); Parainfluenza Virus 3 PCR Not Detected (NotDetected); Parainfluenza Virus 4 PCR Not Detected (NotDetected); Respiratory Syncytial VirusPCR Not Detected (NotDetected); Rhinovirus/Enterovirus PCR Not Detected (NotDetected)
--- NOTE | 2022-09-27 14:56 | CT Scan Report ---
ABDOMEN AND PELVIS CT WITHOUT CONTRAST CT DOSE: 1189.73 mGy.cm HISTORY: Generalized abdominal pain. TECHNIQUE: Multiaxial CT images of the abdomen and pelvis were performed without contrast. A dose lo wering technique was utilized adhering to the principles of ALARA. COMPARISON STUDY: Abdomen and pelvis CT 08/23/2018. FINDINGS: There is again noted a 9 mm nodule within the right lower lobe. Bibasilar linear densities consistent with subsegmental atelectasis or scarring. No pneumoperitoneum. No pneumatosis. There are poststernotomy changes. No acute fractures identified. The unenhanced liver, spleen, adrenal glands, and pancreas are within normal limits. Residual contrast within the urinary system from the prior CT examination. There are few bilateral renal hypodense lesions which measure up to 9 mm. These are tech nically too small to characterize but statistically represent cysts. No hydronephrosis. A punctate ca lcification within the right deep pelvis on image 290 remains stable. This likely represents a phlebo lith. Small amount of vicarious excretion of contrast seen within the gallbladder. No gallbladder wal l thickening. Calcified plaque within the normal caliber abdominal aorta. No retroperitoneal or pelvi c lymphadenopathy. No pelvic free fluid. Prior hysterectomy. No bladder wall thickening. Suboptimal e valuation for bowel pathology due to the lack of intravenous and oral contrast. However, there is no definite bowel wall thickening or obstruction. The colon is decompressed. Colonic diverticulosis. No evidence for acute diverticulitis. Normal appendix. IMPRESSION: 1. No definite bowel wall thickening or obstruction. 2. Normal appendix. 3. Colonic diverticulosis. No evidence for acute diverticulitis. 4. Stable 9 mm right lower lobe pulmonary nodule. 5. Additional findings as described above. ACT 112: Negative or not required by law. Electronically signed by: Thomas Abad M.D. 09/27/2022 2:55 PM
--- NOTE | 2022-09-27 15:06 | History & Physical Report ---
Date of Service September 27, 2022 Assessment & Plan (1) Nausea: Plan: -Admit to med/tele -Currently stable -Patient with intractable nausea, lightheadedness/dizziness with movement, and generalized weakness since 09/24 -Symptoms are inconsistent but are becoming more consistent in severe over the past 24 hours -Not relieved today with IV fluids and zofran -Labs have been unremarkable, no signs of infection, no meningitic symptoms such as AMS, acute changes in vision, or neck/back pain/stiffness -Cardia workup is unremarkable -CT of the head, CTA of the head/neck without significant findings. She is noted to have Severe atherosclerosis of the carotid bulbs with resultant 70% stenosis of the proximal left ICA and 50% stenosis on the right, but her posterior circulation is widely patent and she is already on daily aspirin. She is not on a statin due to intolerance -The etiology of her symptoms is unclear at this time as her nausea is exacerbated with movement of most body parts and was significantly exacerbated with palpation of her upper abdomen -She has a hx of migraines, her symptoms could be due to migraine at this time -With her hx of atherosclerotic disease and persistent symptoms will obtain a STAT MRI of the brain wo con for further evaluation >Will give her a dose of Ativan prior for claustrophobia, hopefully this will help her other symptoms as well >Will order prn meclizine after her MRI for ongoing dizziness -[facility] NPO for now -Will give 20 mg IV famotidine now and monitor for improvement of her nausea, if not improvement will consider migraine therapy when her BP is controlled -Will continue light IV LR while unable to resume PO intake -BL scd's for DVT PPX until her MRI has resulted -Will hold antiemetics until we see if famotidine improves her symptoms -AM CBC, CMP, and mag (2) Dizziness: Plan: -Follow MRI of the brain wo con -Monitor on tele -Fall precautions ordered (3) Hypertension: Plan: -Currently hypertensive at 183/80 -Will wait to treat until her MRI has resulted -If MRI is negative will resume her typical antihypertensive regimen (4) Vertigo: Plan The patient was discussed with Dr. Dorantes at the time of the admission History of Present Illness Chief Complaint: Intractable nausea with poor oral intake Primary Care Provider: NO PCP Ericida is a 77 year old female with a PMH significant for asthma, memory changes, HTN, and HLD who presented to the [facility] ED on 09/27 for ongoing nausea and poor oral intake. In the ED vitals were stable. Labs today including CBC, CMP, and high sen trop were WNL. UA shows 2+ protein, 2+ blood, and 10-[address] head/brain wo con, CTA of the head, and CTA of the neck were read as "1. No acute intracranial abnormality. 2. Severe atherosclerosis of the carotid bulbs with resultant 70% stenosis of the proximal left ICA and 50% stenosis on the right. 3. Otherwise unremarkable CTA.". Venous doppler of the left LE was read as "No DVT within the right or left lower extremity.". CT of the abd/pelvis wo con was read as " 1. No definite bowel wall thickening or obstruction. 2. Normal appendix. 3. Colonic diverticulosis. No evidence for acute diverticulitis. 4. Stable 9 mm right lower lobe pulmonary nodule. 5. Additional findings as described above.". The patient was given a total of 8 mg IV zofran and 1L NSS but her symptoms persisted prevent adequate PO intake. We were consulted to admit for further workup and treatment of intractable nausea/vomiting and poor oral intake. Per chart review, the patient first presented to the [facility] ED on 09/25 for similar symptoms. A large workup was obtained at that time, labs including CBC, CMP, high sen trop, and TSH were WNL. D-dimer was elevated at 880. Chest xray was read as "No significant change compared to the prior study. No acute process.". CTA of the chest was read as "1. No evidence for pulmonary embolus. 2. Stable cardiomegaly and mild aneurysmal dilatation of the ascending thoracic aorta measuring up to 4 mm. 3. Mild bronchial wall thickening with air trapping and bibasilar atelectasis. This suggests a mild bronchitis and remains unchanged. 4. No new focal lung consolidations to suggest a pneumonia. 5. Stable 9 mm nodule within the right lower lobe.". She was given a dose of zofran and 1L NSS and was discharged home with plans to follow up with her PCP. At the time of the exam the patient was lying in bed in no acute distress with her daughter sitting bedside, history was obtained from both. The patient's symptoms of nausea, lightheadedness/dizziness started on Friday night. Earlier in the night their family had dinner at [employer], the patient states that she had a baked potato and some chicken, her symptoms started after arriv ing home. Her daughter denies anyone else in the family having similar symptoms. Her symptoms persisted overnight and into the day on 09/25 which promoted her visit ED visit. She had initial improvement in her symptoms after the IV fluids and zofran. However, her symptoms returned after she was discharged home and tried to eat dinner. Since then her symptoms have progressed to the point that she cannot tolerate PO intake, has not had any of her home medications since yesterday, and is currently feeling too Ill to safely ambulate. When asked, the patient states that she has a long history of migraines. When she gets a migraine she develops pain behind her left eye, will have a headache, and gets nauseous. Se explains that when she has migraines she will sometimes lose the peripheral field of vision in each eye, but only when one is covered. If she covers her left eye she will lose peripheral vision in the right eye, and the same will happen if she covers her right eye. When she uses both eyes these vision losses improve. She denies vision loss or changes in vision over the past week. The patient does not consistently take NSAIDs for pain, she mainly uses tylenol. She does not have a history of reflux or GI ulcers. She denies the room spinning when she gets her recent symptoms. Symptoms occur with movement but also at rest. She denies any changes in hearing or taste recently but does state that has been having "odd smells" at times. Her symptoms have been getting worse since arrival to the ED today and they do not feel that she is safe to return home at this time. She was supposed to decrease the dose of her amlodipine from 5 mg daily to 2.5 mg daily due to a recent history of hypotension. She has not had decreased her dose as her BP has been higher this week. She wishes to be a conditional code. She would not want CPR or defibrillation in the event of cardiac arrest. In the event of respiratory failure she would want a trial of intubation. Please refer to Dr. Dorantes's attestation for any changes to the treatment plan Allergies Allergy/AdvReac Type Severity Reaction Status Date / Time Hill And Derivatives Allergy Severe TONGUE Verified 09/27/22 12:10 SWELLING Opioids-Meperidine and Allergy Unknown Unknown Verified 09/27/22 18:56 Related Opioids-Methadone and Related Allergy Unknown Unknown Verified 09/27/22 18:56 montelukast [From Singulair] Allergy Unknown Verified 09/27/22 12:10 codeine AdvReac Intermediate DIARRHEA, Verified 09/27/22 12:10 MIGRAINES,HALLUCINATIONS ZAIDA Inhibitors AdvReac Mild DIZZY Verified 09/27/22 12:10 Wbxciky-[id number]-[id number] Reductase AdvReac Mild MYALGIA Verified 09/27/22 18:56 Inhibitor valsartan AdvReac Mild DIZZY Verified 09/27/22 12:10 Home Medications Medication Instructions Recorded Confirmed Type cyanocobalamin (vitamin B-12) 1,000 mcg PO DAILY 09/03/19 09/27/22 History 1,000 mcg tablet (Vitamin B-12) nebulizers #1 ea 09/04/19 09/27/22 Rx ipratropium 0.5 mg-albuterol 3 mg 3 ml NEB Q6H PRN 09/23/19 09/27/22 Rx (2.5 mg base)/3 mL nebulization cough/wheeze/shortness of breath soln #1 box albuterol sulfate 90 mcg/actuation 2 puff inhalation Q6H PRN 10/21/19 09/27/22 History aerosol inhaler shortness of breath/wheezing aspirin 81 mg tablet,delayed 81 mg PO DAILY 06/29/20 09/27/22 History release (Adult Aspirin Regimen) irbesartan 300 mg tablet (Avapro) 300 mg PO DAILY 01/15/22 09/27/22 History metoprolol succinate 25 mg 25 mg PO DAILY 01/15/22 09/27/22 History tablet,extended release 24 hr amlodipine 5 mg tablet 5 mg PO DAILY 09/25/22 09/27/22 History turmeric root extract 500 mg tablet 500 mg PO DAILY 09/27/22 09/27/22 History Past Med/Surg History Medical History HLD (hyperlipidemia) Hypertension Family History Other Family history non-contributory Social History Smoking Status: Never smoker Hx Alcohol Use: No Hx Substance Use: No Preferred Language: Armenian [employer] Required: No Beliefs That Will Affect Care: None Current Living Situation: Alone Other Information That Helps Us Care for You: No Feels Safe at Home: Yes Safety Concerns: Feels Safe At This Time Assistive Devices: Glasses and Hearing Aid - Bilateral Assistive Devices Comment: does not have with pt Physical Exam Physical Exam: Physical Exam: General: In no acute distress, stated age, well-nourished, non-toxic appearing HEENT: Normocephalic, atraumatic, no scleral icterus, pupils around round, symmetrical, and reactive to light, moist mucus membranes, trachea midline, no thyromegaly Chest/Pulm: No respiratory distress, symmetrical chest expansion, clear breath sounds throughout Cardiac: RRR, no murmurs noted Abdomen: Negative for ascites and bruising, normoactive bowel sounds, soft, non-tender to palpation throughout, palpation of the upper abdomen and epigastric region exacerbate her nausea, the patient belched after palpation Musculoskeletal: Symmetrical and without signs of acute trauma, upper and lower extremities with full ROM, no atrophy, spasticity, or flaccidity Extremities: Radial, dorsalis pedis, and posterior tibial pulses are intact and symmetrical, no edema noted in the BL LE's Skin: Warm, dry, no rashes , lesions, or scars noted Neuro: Alert and oriented to person, place, month, year, and president, no focal defects, CN II-XII tested and intact, patient became nauseous while testing EOM with left lateral nystagmus noted, visual holman are intact in each eye, finger to nose test negative, negative pronator drift, no tremors noted Psych: No acute distress, calm and cooperative during the exam Results & Data Results & Data Vital Signs (Past 12 Hours) Vital Signs Temp Pulse Pulse Resp BP BP Pulse Ox 09/27/22 13:58 65 09/27/22 12:17 68 16 165/83 H 97 09/27/22 10:20 61 09/27/22 10:21 62 95 09/27/22 10:15 63 18 186/85 H 94 09/27/22 10:15 94 09/27/22 08:55 36.2 C L 64 20 155/70 H 97 O2 Del Method 09/27/22 13:58 09/27/22 12:17 Room Air 09/27/22 10:20 09/27/22 10:21 09/27/22 10:15 09/27/22 10:15 Room Air 09/27/22 08:55 Room Air Laboratory Results Abnormal lab results 09/27/22 09/27/22 09/27/22 Range/Units 10:15 10:15 12:35 MPV 8.6 L (9.4-12.4) fL Sodium 135 L (136-145) mmol/L Glucose 144 H (70-99(Fasting)) mg/dl Ur Specific [place] 1.035 H (1.000-1.030) Urine Protein 2+ H (Negative) Urine Blood 2+ H (Negative) Urine RBC (Auto) 10-30 H (0-4) /hpf Diagnostic Findings Head CT 09/27/22 09:51 CT angio head w con, CT head/brain wo con, CT angio neck with con CLINICAL HISTORY: 77 years-old Female with neuro deficit, acute stroke suspected. Acute stroke like symptoms with dizziness and nausea COMPARISON STUDY: Brain MRI 07/04/2020 TECHNIQUE: Unenhanced axial CT scan of the brain is performed. Subsequently, following the IV administration of 120 cc of Optiray, CT angiogram of the head and neck was performed from the aortic arch to the skull apex. Images are reviewed in the axial, sagittal, and coronal planes. 3-D MIPS images are created and assessed. IV contrast was administered without complication. All measurements were obtained according to NASCET criteria. A dose lowering technique was utilized adhering to the principles of ALARA. CT DOSE: 1090.23 mGy.cm FINDINGS: CT BRAIN: There is no acute intracranial hemorrhage, midline shift, hydrocephalus, intracranial mass, territorial ischemia or abnormal extra-axial collections. No abnormal intra-axial or extra-axial enhancement. Involutional changes with ch ronic microvascular ischemic disease. Cerebrovascular calcifications. Mastoid air cells and middle ear cavities are clear. No calvarial fracture. Prior bilateral lens repair. Paranasal sinuses are clear. CT ANGIOGRAM OF THE HEAD AND NECK: Atherosclerosis of the thoracic arch and proximal great vessels. Moderate atherosclerosis of the common carotid arteries. Extensive atherosclerotic plaque of the carotid bulbs and proximal cervical segments of the internal carotid arteries. There is 70% stenosis at the origin of the left ICA on image 220 series 6. There is 50% stenosis at the origin of the right ICA. Minimal irregularity involves the distal cervical segment left ICA on image 298 which may be secondary to atherosclerosis. Mild luminal narrowing of the bilateral middle cerebral arteries. The anterior cerebral arteries are patent. The vertebrobasilar system and posterior cerebral arteries are widely patent. There is no aneurysm, high-grade stenosis, or proximal branch occlusion identified. Dural sinuses appear patent. Median sternotomy. Unremarkable soft tissues. Degenerative changes of the cervical spine. IMPRESSION: 1. No acute intracranial abnormality. 2. Severe atherosclerosis of the carotid bulbs with resultant 70% stenosis of the proximal left ICA and 50% stenosis on the right. 3. Otherwise unremarkable CTA. ACT 112: Negative or not required by law. The above report was generated using voice recognition software. It may contain grammatical, syntax or spelling errors. Electronically signed by: Wilber Jasso M.D. 09/27/2022 11:52 AM Head CTA 09/27/22 09:51 CT angio head w con, CT head/brain wo con, CT angio neck with con CLINICAL HISTORY: 77 years-old Female with neuro deficit, acute stroke suspected. Acute stroke like symptoms with dizziness and nausea COMPARISON STUDY: Brain MRI 07/04/2020 TECHNIQUE: Unenhanced axial CT scan of the brain is performed. Subsequently, following the IV administration of 120 cc of Optiray, CT angiogram of the head and neck was performed from the aortic arch to the skull apex. Images are reviewed in the axial, sagittal, and coronal planes. 3-D MIPS images are created and assessed. IV contrast was administered without complication. All measurements were obtained according to NASCET criteria. A dose lowering technique was utilized adhering to the principles of ALARA. CT DOSE: 1090.23 mGy.cm FINDINGS: CT BRAIN: There is no acute intracranial hemorrhage, midline shift, hydrocephalus, intracranial mass, territorial ischemia or abnormal extra-axial collections. No abnormal intra-axial or extra-axial enhancement. Involutional changes with chronic microvascular ischemic disease. Cerebrovascular calcifications. Mastoid air cells and middle ear cavities are clear. No calvarial fracture. Prior bilateral lens repair. Paranasal sinuses are clear. CT ANGIOGRAM OF THE HEAD AND NECK: Atherosclerosis of the thoracic arch and proximal great vessels. Moderate atherosclerosis of the common carotid arteries. Extensive atherosclerotic plaque of the carotid bulbs and proximal cervical segments of the internal carotid arteries. There is 70% stenosis at the origin of the left ICA on image 220 series 6. There is 50% stenosis at the origin of the right ICA. Minimal irregularity involves the distal cervical segment left ICA on image 298 which may be secondary to atherosclerosis. Mild luminal narrowing of the bilateral middle cerebral arteries. The anterior cerebral arteries are patent. The vertebrobasilar system and posterior cerebral arteries are widely patent. There is no aneurysm, high-grade stenosis, or proximal branch occlusion identified. Dural sinuses appear patent. Median sternotomy. Unremarkable soft tissues. Degenerative changes of the cervical spine. IMPRESSION: 1. No acute intracranial abnormality. 2. Severe atherosclerosis of the carotid bulbs with resultant 70% stenosis of the proximal left ICA and 50% stenosis on the right. 3. Otherwise unremarkable CTA. ACT 112: Negative or not required by law. The above report was generated using voice recognition software. It may contain grammatical, syntax or spelling errors. Electronically signed by: Wilber Jasso M.D. 09/27/2022 11:52 AM Neck CTA 09/27/22 09:51 CT angio head w con, CT head/brain wo con, CT angio neck with con CLINICAL HISTORY: 77 years-old Female with neuro deficit, acute stroke suspected. Acute stroke like symptoms with dizziness and nausea COMPARISON STUDY: Brain MRI 07/04/2020 TECHNIQUE: Unenhanced axial CT scan of the brain is performed. Subsequently, following the IV administration of 120 cc of Optiray, CT angiogram of the head and neck was performed from the aortic arch to the skull apex. Images are reviewed in the axial, sagittal, and coronal planes. 3-D MIPS images are created and assessed. IV contrast was administered without complication. All measurements were obtained according to NASCET criteria. A dose lowering technique was utilized adhering to the principles of ALARA. CT DOSE: 1090.23 mGy.cm FINDINGS: CT BRAIN: There is no acute intracranial hemorrhage, midline shift, hydrocephalus, intracranial mass, territorial ischemia or abnormal extra-axial collections. No abnormal intra-axial or extra-axial enhancement. Involutional changes with chronic microvascular ischemic disease. Cerebrovascular calcifications. Mastoid air cells and middle ear cavities are clear. No calvarial fracture. Prior bilateral lens repair. Paranasal sinuses are clear. CT ANGIOGRAM OF THE HEAD AND NECK: Atherosclerosis of the thoracic arch and proximal great vessels. Moderate atherosclerosis of the common carotid arteries. Extensive atherosclerotic plaque of the carotid bulbs and proximal cervical segments of the internal carotid arteries. There is 70% stenosis at the origin of the left ICA on image 220 series 6. There is 50% stenosis at the origin of the right ICA. Minimal irregularity involves the distal cervical segment left ICA on image 298 which may be secondary to atherosclerosis. Mild luminal narrowing of the bilateral middle cerebral arteries. The anterior cerebral arteries are patent. The vertebrobasilar system and posterior cerebral arteries are widely patent. There is no aneurysm, high-grade stenosis, or proximal branch occlusion identified. Dural sinuses appear patent. Median sternotomy. Unremarkable soft tissues. Degenerative changes of the cervical spine. IMPRESSION: 1. No acute intracranial abnormality. 2. Severe atherosclerosis of the carotid bulbs with resultant 70% stenosis of the proximal left ICA and 50% stenosis on the right. 3. Otherwise unremarkable CTA. ACT 112: Negative or not required by law. The above report was generated using voice recognition software. It may contain grammatical, syntax or spelling errors. Electronically signed by: Wilber Jasso M.D. 09/27/2022 11:52 AM Venous Doppler Study 09/27/22 09:53 BILATERAL LOWER EXTREMITY VENOUS DOPPLER HISTORY: Acute dizziness with nausea and vomiting EVAL FO DVT, ELEVATED DDIME COMPARISON STUDY: 02/05/2016 FINDINGS: There is normal compressibility, flow, and augmentation within the bilateral lower extremity deep venous systems. IMPRESSION: No DVT within the right or left lower extremity. ACT 112: Negative or not required by law. Electronically signed by: Wilber Jasso M.D. 09/27/2022 1:18 PM Abdomen/Pelvis CT 09/27/22 12:[address] WITHOUT CONTRAST CT DOSE: 1189.73 mGy.cm HISTORY: Generalized abdominal pain. TECHNIQUE: Multiaxial CT images of the abdomen and pelvis were performed without contrast. A dose lowering technique was utilized adhering to the principles of ALARA. COMPARISON STUDY: Abdomen and pelvis CT 08/23/2018. FINDINGS: There is again noted a 9 mm nodule within the right lower lobe. Bibasilar linear densities consistent with subsegmental atelectasis or scarring. No pneumoperitoneum. No pneumatosis. There are poststernotomy changes. No acute fractures identified. The unenhanced liver, spleen, adrenal glands, and pancreas are within normal limits. Residual contrast within the urinary system from the prior CT examination. There are few bilateral renal hypodense lesions which measure up to 9 mm. These are technically too small to characterize but statistically represent cysts. No hydronephrosis. A punctate calcification within the right deep pelvis on image 290 remains stable. This likely represents a phlebolith. Small amount of vicarious excretion of contrast seen within the gallbladder. No gallbladder wall thickening. Calcified plaque within the normal caliber abdominal aorta. No retroperitoneal or pelvic lymphadenopathy. No pelvic free fluid. Prior hysterectomy. No bladder wall thickening. Suboptimal evaluation for bowel pathology due to the lack of intravenous and oral contrast. However, there is no definite bowel wall thickening or obstruction. The colon is decompressed. Colonic diverticulosis. No evidence for acute diverticulitis. Normal appendix. IMPRESSION: 1. No definite bowel wall thickening or obstruction. 2. Normal appendix. 3. Colonic diverticulosis. No evidence for acute diverticulitis. 4. Stable 9 mm right lower lobe pulmonary nodule. 5. Additional findings as described above. ACT 112: Negative or not required by law. Electronically signed by: Thomas Abad M.D. 09/27/2022 2:55 PM ECG Additional Comments: Normal sinus rhythm Normal ECG When compared with ECG of 25-SEP-2022 08:25, No significant change was found Confirmed by Joey Cotton ([id number]) on 09/27/2022 10:38:56 AM Code Status & VTE Plan Code Status Conditional; No CPR or defibrillation in the event of cardiac arrest. Would want trial of intubation in the event of respiratory failure VTE Prophylaxis Plan VTE Prophylaxis will be ordered: Yes Supervising Physician Co-Signing Physician Notes I personally saw and examined the patient. I verified all dumont points and agree with Juan Flores PA-C with the following exceptions and/or additions: 77 year old female presents to the ER with nausea, vomiting, dizziness. Having lightheadedness on standing, being unbalanced and room spinning sensation. No abdominal pain or change in bowel habit. O/E A&Ox3, HS RRR, no murmurs, Chest CTAB, Abdo SNT, CN 2-> 12 intact, fast beating nystagmus towards left side on left lateral gaze, no diplopia, A/P Vertigo - MRI brain negative for stroke. Migraine vs. BPPV vs. acute vesticular neuritis. Meclizine 25mg PO q6h PRN for vertigo/nausea 1st line. Diazepam 2nd line. She may also have some orthostatics but I suspect the main cause of her symptoms is vertigo PG Care Time/CCT Total # of Minutes Spent Total Time Spent with Patient: Total time spent is greater than 50% in coordination of care (as documented) at patient's floor/unit and/or counseling patient: [place] [address] INT INP/OBS CARE 2/55MIN Patient Type Established Medical Decision Making Moderate Complexity Diagnoses Nausea R11.0 Dizziness R42 Hypertension I10 Vertigo R42
[2022-09-27] MEDS ORDERED: FAMOTIDINE 20 MG in SYRINGE 3 ML IV STA (15:58)
[2022-09-27] MEDS ORDERED: MECLIZINE HCL 25 MG TAB PO STA (16:16)
[2022-09-27] MEDS ORDERED: LORazepam 2 MG/1 ML VIAL IV STA (16:19)
--- NOTE | 2022-09-27 17:18 | Magnetic Resonance Report ---
Brain MRI WITHOUT CONTRAST HISTORY: vertigo, nausea, dizziness TECHNIQUE: Multiplanar multisequence MRI of the brain was performed without the use of contrast. COMPARISON STUDY: Head CT 09/27/2022. Brain MRI 07/04/2020. FINDINGS: There is no mass, hematoma, midline shift, or acute infarct. The mastoid air cells are adrian r. The ventricles and sulci demonstrate mild age-related involutional changes. Scattered foci of T2 h yperintensity seen within the periventricular and subcortical white matter are nonspecific but sugges tive of mild microvascular ischemic changes. The major vascular flow voids at the skull base are well -maintained. Prior bilateral lens replacement. There is partial opacification of the right sphenoid s inus. A right posterior scalp lesion which favors a sebaceous cyst. IMPRESSION: 1. Acute infarct or intracranial hemorrhage. 2. Mild atrophy and microvascular ischemic changes again noted. ACT 112: Negative or not required by law. Electronically signed by: Thomas Abad M.D. 09/27/2022 5:17 PM
[2022-09-27] MEDS ORDERED: ALBUT/IPRATROP 3MG/0.5MG NEB 3 ML VIAL NEB PRN (17:39)
[2022-09-27] MEDS: LACTATED RINGER'S 1,000 ML IV SCH (18:37)
[2022-09-27] MEDS ORDERED: MECLIZINE HCL 25 MG TAB PO PRN (18:50)
[2022-09-27] MEDS ORDERED: METOCLOPRAMIDE HCL INJ 5 MG/ML 2 ML VIAL IV ONE ×2 (18:50→21:30)
[2022-09-27] MEDS ORDERED: hydrALAZINE HCL 20 MG/ML VIAL IV PRN (18:53)
[2022-09-27] MEDS ORDERED: Nursing to Pharmacy Communication SCH (20:30)
[2022-09-28] MEDS: MECLIZINE HCL 25 MG TAB PO PRN ×2 (00:01→08:41)
[2022-09-28] MEDS ORDERED: DIAZEPAM IV PRN (00:13)
[2022-09-28] MEDS ORDERED: diazePAM 2 MG TABLET PO PRN (00:55)
[2022-09-28] MEDS: LACTATED RINGER'S 1,000 ML IV SCH (06:07)
[2022-09-28 06:11] LABS: Basophils # (auto) 0.05 K/uL (0-0.2); Basophils % (auto) 0.5 %; Eosinophils # (auto) 0.11 K/uL (0-0.50); Eosinophils % (auto) 1.1 %; Hematocrit (blood only) 35.4 % (37.0-47.0); Hemoglobin 12.5 g/dl (12.0-16.0); Immature Granulocytes # (auto) 0.03 K/uL (0.01-0.20); Immature Granulocytes % (auto) 0.3 %; Lymphocytes # (auto) 3.47 K/uL (1.2-3.4); Lymphocytes % (auto) 35.5 %; Mean Corpuscular Hemoglobin 32.8 pg (25.0-34.0); Mean Corpuscular Hgb Conc 35.3 g/dL (32.0-36.0); Mean Corpuscular Volume 92.9 fL (80.0-100.0); Mean Platelet Volume 8.5 fL (9.4-12.4); Monocytes # (auto) 0.88 K/uL (0.11-0.59); Neutrophils # (auto) 5.23 K/uL (1.40-6.50); Neutrophils % (auto) 53.6 %; Platelet Count 247 K/uL (130-400); RDW Coefficient of Variation 11.4 % (11.5-14.5); RDW Standard Deviation 38.6 fL (36.4-46.3); Red Blood Count 3.81 M/uL (4.20-5.40); White Blood Count 9.77 K/ul (4.8-10.8)
[2022-09-28 06:24] LABS: Albumin Globulin Ratio 1.4 (0.9-2); Albumin Level 3.6 gm/dl (3.4-5.0); BUN Creatinine Ratio 14.3 (10-20); Bilirubin,Total 0.5 mg/dl (0.2-1.0); Calcium 8.6 mg/dl (8.6-10.3); Creatinine Clr Calc Pharmacy 51.3 ml/min; Est GFR (African American) 71.5 ml/min; Est GFR (Non-African American) 61.7 ml/min; Globulin 2.6 gm/dl (2.5-4.0); Magnesium 1.6 mg/dl (1.7-2.4); Potassium 3.6 mmol/L (3.5-5.1); Total Protein 6.2 gm/dl (6.0-8.3)
[2022-09-28] MEDS: METOPROLOL SUCC 25MG EXT REL TAB PO SCH (08:41)
[2022-09-28] MEDS: amLODIPine BESYLATE 5 MG TAB PO SCH (08:41)
[2022-09-28] MEDS: ASPIRIN 81 MG ECTAB PO SCH (08:41)
[2022-09-28] MEDS: FAMOTIDINE 20 MG in SYRINGE 3 ML IV SCH (09:31)
[2022-09-28] MEDS: methylPREDNISolone 40 MG in SYRINGE 0 ML IV SCH ×2 (13:44→20:25)
[2022-09-28] MEDS: MECLIZINE HCL 25 MG TAB PO SCH ×2 (13:44→20:25)
[2022-09-28] MEDS: ACETAMINOPHEN 1,000 MG/100 ML VIAL IV PRN (13:52)
--- NOTE | 2022-09-28 15:15 | Hospitalist Progress Note ---
Date of Service September 28, 2022 Assessment & Plan (1) Benign positional vertigo: Plan: Scheduled meclizine dosing. Scheduled Solu-Medrol dosing. Supportive care. Brain MRI scan negative for ischemic event (2) Nausea: Plan: Symptomatic treatment. Treat BPV (3) Dizziness: Plan: Due to BPV. Supportive care. Brain MRI negative for ischemic event (4) Hypertension: Plan: Stable. Continue current medical management Plan Hopefully home tomorrow, September 29 Admission and Anticipated Discharge Date Admission Date: September 27, 2022 Subjective Alert and oriented. No distress. Symptoms are consistent with acute labyrinthitis. She gets vertigo with movement. Meclizine started on a schedu led basis along with parenteral steroid therapy. IV fluids taper down. Hopefully this will improve quickly and she can go home tomorrow. Brain MRI scan is negative for ischemic event Review of Systems Review of Systems: Constitutional-no fever or chills ENT-no blurred vision, no double vision, no epistaxis, no sore throat Respiratory-no cough, no wheezing, no shortness of breath Cardiac-no palpitations, no chest pain, no syncope GI-no nausea, vomiting, diarrhea, melena, hematochezia -no urinary retention, no urinary incontinence, no dysuria, no hematuria Musculoskeletal-no joint pain, no muscle tenderness Skin-no bruising, no rashes, no pruritus Neuro-vertigo symptoms with movement. No isolated weakness Psych-no depression, no anxiety Physical Exam Physical Exam: General-alert and oriented x3, no fevers, no chills HEENT-head atraumatic and normocephalic, pupils equal and reactive to light, e xtraocular muscles intact. No discernible nystagmus Neck-no lymphadenopathy or thyromegaly, trachea midline Chest-clear to auscultation percussion. No rales wheezing or rhonchi Cardiac-regular rate and rhythm, normal S1 and S2 Abdomen-normal bowel sounds, nontender, no hepatosplenomegaly Extremities-no cyanosis, clubbing, or edema Neuro-cranial nerves II through XII intact, motor and sensory function within normal limits, strength symmetrical , no focal deficits. Vertigo symptoms with movement Psych-normal affect, normal mood Results & Data Results & Data Vital Signs (Past 12 Hours) Vital Signs Temp Pulse Pulse Resp BP Pulse Ox O2 Del Method 09/28/22 10:57 36.8 C 60 16 164/79 H 94 Room Air 09/28/22 09:05 58 L 09/28/22 07:24 36.8 C 67 18 169/74 H 94 Room Air 09/28/22 03:31 36.8 C 74 16 144/72 H 94 Room Air Laboratory Results 09/28/22 05:35 09/28/22 05:35 PG Care Time/CCT Total # of Minutes Spent Total Time Spent with Patient: Total time spent is greater than 50% in coordination of care (as documented) at patient's floor/unit and/or counseling patient: Coding Level of Care Code 14076 SUB INP/OBS CARE 3/50MIN Diagnoses Benign positional vertigo H81.10 Nausea R11.0 Dizziness R42 Hypertension I10
[2022-09-28] MEDS ORDERED: ONDANSETRON INJ 2 MG/ML 2 ML VIAL IV PRN (17:37)
[2022-09-29] MEDS: methylPREDNISolone 40 MG in SYRINGE 0 ML IV SCH (06:13)
[2022-09-29] MEDS: ACETAMINOPHEN 1,000 MG/100 ML VIAL IV PRN (06:32)
[2022-09-29 07:28] LABS: Basophils # (auto) 0.02 K/uL (0-0.2); Basophils % (auto) 0.2 %; Hemoglobin 13.7 g/dl (12.0-16.0); Immature Granulocytes # (auto) 0.07 K/uL (0.01-0.20); Immature Granulocytes % (auto) 0.6 %; Lymphocytes # (auto) 1.77 K/uL (1.2-3.4); Lymphocytes % (auto) 14.8 %; Mean Corpuscular Hemoglobin 32.5 pg (25.0-34.0); Mean Corpuscular Hgb Conc 34.3 g/dL (32.0-36.0); Mean Platelet Volume 8.7 fL (9.4-12.4); Monocytes # (auto) 0.35 K/uL (0.11-0.59); Monocytes % (auto) 2.9 %; Neutrophils # (auto) 9.76 K/uL (1.40-6.50); Neutrophils % (auto) 81.5 %; Platelet Count 294 K/uL (130-400); RDW Coefficient of Variation 11.6 % (11.5-14.5); Red Blood Count 4.21 M/uL (4.20-5.40); White Blood Count 11.97 K/ul (4.8-10.8)
[2022-09-29] MEDS: MECLIZINE HCL 25 MG TAB PO PRN (07:37)
[2022-09-29 07:49] LABS: Albumin Globulin Ratio 1.3 (0.9-2); Albumin Level 3.9 gm/dl (3.4-5.0); Bilirubin,Total 0.3 mg/dl (0.2-1.0); Calcium 9.1 mg/dl (8.6-10.3); Creatinine Clr Calc Pharmacy 46.7 ml/min; Est GFR (African American) 67.1 ml/min; Est GFR (Non-African American) 57.9 ml/min; Globulin 2.9 gm/dl (2.5-4.0); Magnesium 1.8 mg/dl (1.7-2.4); Potassium 3.9 mmol/L (3.5-5.1); Total Protein 6.8 gm/dl (6.0-8.3)
[2022-09-29] MEDS: amLODIPine BESYLATE 5 MG TAB PO SCH (08:00)
[2022-09-29] MEDS: ASPIRIN 81 MG ECTAB PO SCH (08:00)
[2022-09-29] MEDS: METOPROLOL SUCC 25MG EXT REL TAB PO SCH (08:00)
[2022-09-29] MEDS: FAMOTIDINE 20 MG in SYRINGE 3 ML IV SCH (08:02)
[2022-09-29] MEDS: MECLIZINE HCL 25 MG TAB PO SCH (08:02)
--- NOTE | 2022-09-29 12:02 | Discharge Summary ---
Date of Service September 29, 2022 Admission HPI Per Admitting Provider Dia is a 77 year old female with a PMH significant for asthma, memory changes, HTN, and HLD who presented to the [facility] ED on 09/27 for ongoing nausea and poor oral intake. In the ED vitals were stable. Labs today including CBC, CMP, and high sen trop were WNL. UA shows 2+ protein, 2+ blood, and 10-[address] head/brain wo con, CTA of the head, and CTA of the neck were read as "1. No acute intracranial abnormality. 2. Severe atherosclerosis of the carotid bulbs with resultant 70% stenosis of the proximal left ICA and 50% stenosis on the right. 3. Otherwise unremarkable CTA.". Venous doppler of the left LE was read as "No DVT within the right or left lower extremity.". CT of the abd/pelvis wo con was read as " 1. No definite bowel wall thickening or obstruction. 2. Normal appendix. 3. Colonic diverticulosis. No evidence for acute diverticulitis. 4. Stable 9 mm right lower lobe pulmonary nodule. 5. Additional findings as described above.". The patient was given a total of 8 mg IV zofran and 1L NSS but her symptoms persisted prevent adequate PO intake. We were consulted to admit for further workup and treatment of intractable nausea/vomiting and poor oral intake. Per chart review, the patient first presented to the [facility] ED on 09/25 for similar symptoms. A large workup was obtained at that time, labs including CBC, CMP, high sen trop, and TSH were WNL. D-dimer was elevated at 880. Chest xray was read as "No significant change compared to the prior study. No acute process.". CTA of the chest was read as "1. No evidence for pulmonary embolus. 2. Stable cardiomegaly and mild aneurysmal dilatation of the ascending thoracic aorta measuring up to 4 mm. 3. Mild bronchial wall thickening with air trapping and bibasilar atelectasis. This suggests a mild bronchitis and remains unchanged. 4. No new focal lung consolidations to suggest a pneumonia. 5. Stable 9 mm nodule within the right lower lobe.". She was given a dose of zofran and 1L NSS and was discharged home with plans to follow up with her PCP. At the time of the exam the patient was lying in bed in no acute distress with her daughter sitting bedside, history was obtained from both. The patient's symptoms of nausea, lightheadedness/dizziness started on Friday night. Earlier in the night their family had dinner at [employer], the patient states that she had a baked potato and some chicken, her symptoms started after arrivi ng home. Her daughter denies anyone else in the family having similar symptoms. Her symptoms persisted overnight and into the day on 09/25 which promoted her visit ED visit. She had initial improvement in her symptoms after the IV fluids and zofran. However, her symptoms returned after she was discharged home and tried to eat dinner. Since then her symptoms have progressed to the point that she cannot tolerate PO intake, has not had any of her home medications since yesterday, and is currently feeling too Ill to safely ambulate. When asked, the patient states that she has a long history of migraines. When she gets a migraine she develops pain behind her left eye, will have a headache, and gets nauseous. Se explains that when she has migraines she will sometimes lose the peripheral field of vision in each eye, but only when one is covered. If she covers her left eye she will lose peripheral vision in the right eye, and the same will happen if she covers her right eye. When she uses both eyes these vision losses improve. She denies vision loss or changes in vision over the past week. The patient does not consistently take NSAIDs for pain, she mainly uses tylenol. She does not have a history of reflux or GI ulcers. She denies the room spinning when she gets her recent symptoms. Symptoms occur with movement but also at rest. She denies any changes in hearing or taste recently but does state that has been having "odd smells" at times. Her symptoms have been getting worse since arrival to the ED today and they do not feel that she is safe to return home at this time. She was supposed to decrease the dose of her amlodipine from 5 mg daily to 2.5 mg daily due to a recent history of hypotension. She has not had decreased her dose as her BP has been higher this week. She wishes to be a conditional code. She would not want CPR or defibrillation in the event of cardiac arrest. In the event of respiratory failure she would want a trial of intubation. Please refer to Dr. Dorantes's attestation for any changes to the treatment plan Principal Diagnosis Benign positional vertigo Discharge Exam General-alert and oriented x3, no fevers, no chills HEENT-head atraumatic and normocephalic, pupils equal and reactive to light, extraocular muscles intact. No discernible nystagmus Neck-no lymphadenopathy or thyromegaly, trachea midline Chest-clear to auscultation percussion. No rales wheezing or rhonchi Cardiac-regular rate and rhythm, normal S1 and S2 Abdomen-normal bowel sounds, nontender, no hepatosplenomegaly Extremities-no cyanosis, clubbing, or edema Neuro-cranial nerves II through XII intact, motor and sensory function within n ormal limits, strength symmetrical , no focal deficits. Vertigo symptoms with movement have improved considerably since treatment started yesterday, September 28 Psych-normal affect, normal mood Discharge Data Allergies Allergy/AdvReac Type Severity Reaction Status Date / Time [place] And Derivatives Allergy Severe TONGUE Verified 09/27/22 12:10 SWELLING Opioids-Meperidine and Allergy Unknown Unknown Verified 09/27/22 18:56 Related Opioids-Methadone and Related Allergy Unknown Unknown Verified 09/27/22 18:56 montelukast [From Singulair] Allergy Unknown Verified 09/27/22 12:10 codeine AdvReac Intermediate DIARRHEA, Verified 09/27/22 12:10 MIGRAINES,HALLUCINATIONS ZAIDA Inhibitors AdvReac Mild DIZZY Verified 09/27/22 12:10 Tggydtm-RMG-FpS Reductase AdvReac Mild MYALGIA Verified 09/27/22 18:56 Inhibitor valsartan AdvReac Mild DIZZY Verified 09/27/22 12:10 Consultations 09/27/22 15:07 ED Decision to Admit Stat Ordered Studies 09/27/22 09:51 CT angio head w con Stat CT angio neck with con Stat CT head/brain wo con Stat 09/27/22 09:53 US venous duplex leg [US venous doppler LE BI] Stat 09/27/22 12:28 CT Abd and Pelvis [CT abd pelvis wo con] Stat 09/27/22 15:58 MRI Brain [MR brain wo con] Stat Hospital Course (1) Benign positional vertigo: Much improved with scheduled meclizine dosing and scheduled Solu-Medrol dosing. Supportive care. Brain MRI scan negative for ischemic event. Home on meclizine and a tapering dose of prednisone. She will take the meclizine until the vertigo symptoms have completely resolved (2) Nausea: Symptomatic treatment. Treat BPV (3) Dizziness: Due to BPV. Supportive care. Brain MRI negative for ischemic event (4) Hypertension: Stable. Continue current medical management Plan Home today, September 29 Total Time Total Time Spent Total Time Spent (In Minutes): 45 minutes Discharge Plan Discharge Items Patient Disposition: Home - Self-Care Reason For Visit: INTRACTABLE NAUSEA Discharge Diagnosis: Benign positional vertigo with nausea and vomiting Activity: Resume your previous activity Non-emergency contact: Primary Care Provider Call non-emergency contact if: your symptoms worsen Follow-up/Referrals: PCP,NO [Primary Care Provider] - Diet: Regular and Heart Healthy Addtl Attending Provider Instructions: Take meclizine until vertigo symptoms have completely resolved. Take prednisone in a tapering dose fashion over the next 6 days Pending Studies at Discharge: No Stand-Alone Forms: [place], Smoking Cessation Medications and DC Order Prescriptions: New meclizine 25 mg Tablet 25 mg PO TID Qty: 21 0RF prednisone 10 mg tablet See Rx Instructions .ROUTE .COMPLEX Qty: 12 0RF Rx Instructions: 10 mg orally 3 times a day for 2 days, then 10 mg twice a day for 2 days, then 10 mg once a day for 2 days, then stop Continued ipratropium-albuterol 0.5 mg-3 mg(2.5 mg base)/3 mL solution for nebulization 3 ml NEB Q6H PRN (Reason: cough/wheeze/shortness of breath) Qty: 1 0RF Rx Instructions: diagnosis - J45.901 aspirin [Adult Aspirin Regimen] 81 mg tablet,delayed release (DR/EC) 81 mg PO DAILY metoprolol succinate 25 mg tablet extended release 24 hr 25 mg PO DAILY irbesartan [Avapro] 300 mg tablet 300 mg PO DAILY albuterol sulfate 90 mcg/actuation HFA aerosol inhaler 2 puff inhalation Q6H PRN (Reason: shortness of breath/wheezing) cyanocobalamin (vitamin B-12) [Vitamin B-12] 1,000 mcg Tablet 1,000 mcg PO DAILY (DME) nebulizers Misc See Rx Instructions .ROUTE .MEDSUPPLY Qty: 1 0RF Rx Instructions: As directed with albuterol/ipratropium amlodipine 5 mg tablet 5 mg PO DAILY turmeric root extract 500 mg Tablet 500 mg PO DAILY Discharge Orders: Discharge Order (Routine); Ordered 09/29/22 Ordered By: Cedric Paez/Other Patient Handouts: Vertigo Disequilibrium Syncope, Vestibular Rehab Therapy Admission Data Admit Date/Time: 09/27/22 15:53 Attending Provider: Cedric Maurice Admit Provider: Perry Dorantes Primary Care Provider: PCP,NO Other Providers: Perry Dorantes Other Interventions: Discharge Summary Assessment (RN) Last Done: 09/29/22 11:00 Coding Level of Care Code 42557 INP/OBS DISCH >30 MIN Diagnoses Benign positional vertigo H81.10 Nausea R11.0 Dizziness R42 Hypertension I10
== END 2022-09-29 13:50 | disposition home or self-care (01) ==
LOC: ED 08:49 → 2N 08:49 → SUATTDRO 15:53 → 2N 16:39